=== PATIENT | female | born 1940 | race Caucasian/White ===

== ENCOUNTER → 2016-10-27 | Outpatient (CLI) | payer OTHER ==
[~2016-10-27] VITALS: Ht 167.6 cm; Wt 85.3 kg
[~2016-10-27] MED LIST: ALLEGRA60 MG PO; BUPROBAN150 MG PO; BUPROPION HCL150 M1 PO; CLONAZEPAM 1 MG1 M1 PO; CLONAZEPAM PO; COREG6.25 MG PO; CYCLOBENZAPRINE10 MG PO; CYMBALTA30 MG PO; CYMBALTA60 MG PO; ESTRACE0.5 MG PO; ESTRACE1 MG PO; FENTANYL PA12 MCG/HR TP; FENTANYL PA25 MCG/HR TP; FENTANYL PA25 MCG/HR TRANSDERM; FENTANYL PA50 MCG/HR TP; FENTANYL PA50 MCG/HR TRANSDERM; FENTANYL PATCH75 MCG TRANSDERM; FISH OIL 1,001000 M2 PO; FLEXERIL PO; HYDROCODON-ACE1 EAC5 PO; HYDROCODON-ACE1 EAC7 PO; HYDROCODON-ACE1 EAC8 PO; HYDROCODONE-AP1 EA11 PO; HYDROCODONE-AP1 EAC6 PO; IMITREX 25 MG T25 M1 PO; LEVOTHROID88 MCG PO; LEVOTHYROXIN0.125 M1 PO; LISINOPRIL10 MG PO; MIRALAX17 GM PO; NABUMETONE 500500 M1 PO; NABUMETONE 500500 M2 PO; NABUMETONE 750750 M1 PO; NAPROSYN500 MG PO; NEURONTIN 300300 M1 PO; NORCO 10-325 T1 EACH PO; PAMELOR25 MG PO; RELAFEN750 MG PO; SENNA8.6 M1 PO; SIMVASTATIN40 MG PO; SINGULAIR 10 MG10 M1 PO; TIZANIDINE HCL 22 M1 PO; UNICOMPLEX M TA1 TA1 PO; VENTOLIN HFA 1818 GM INH; VITAMIN D1000 UNI1 PO; VITAMIN D32000 UNI1 PO; ZANAFLEX4 M1 PO; [UNRECOGNIZED DRUG - OTHER] PO
--- NOTE | ~2016-10-27 | HPC ---
[address] [place] [address] PAIN MANAGEMENT CONSULTATION Name: RDA LINDER Room #: REG PADMINI Mo.#: [id number] Admission: 10/27/16 Attend Phys: Karson Clay DO Discharge: Date of : 42 Report #: [id number] THIS REPORT FOR: //name// CC: Karson TELLEZ DATE OF SERVICE: 10/27/2016 CHIEF COMPLAINT: Low back pain, right lower extremity pain and paresthesias. HISTORY OF PRESENT ILLNESS: As you know, the patient is a 76-year-old female who suffers from longstanding lumbar radiculopathy who ultimately underwent spinal cord stimulator implantation with good efficacy. She returns today in followup visit to begin weaning off fentanyl patches. She currently uses a 12 mcg patch along with hydrocodone on a p.r.n. basis. She has returned today in followup visit to make changes in her medication as she wishes to come off that fentanyl therapy as she is receiving about 70% improvement in overall pain with the spinal cord stimulating device. ALLERGIES: No known drug allergies. CURRENT MEDICATIONS: Fentanyl 12 mcg subQ 72 hours, hydrocodone/acetaminophen 5/325 one to two tabs every 6 hours p.r.n. for pain, bupropion SR 150 mg once a day, albuterol 2 puffs q. 4 hours, Senokot twice a day, nabumetone 500 mg twice a day, levothyroxine 125 mcg per day, cholecalciferol 2000 units per day, MiraLax 17 grams per day, multivitamin 1 tab per day, omega-3 fish oil 1 tab per day, lisinopril 20 mg per day, Duloxetine 60 mg per day, simvastatin 40 mg per day. SOCIAL HISTORY: The patient denies tobacco, alcohol, IV or illicit drug use. She is retired, accompanied by her . PHYSICAL EXAMINATION: VITAL SIGNS: Blood pressure 145/88, pulse 63, respiratory rate 16, unlabored. The patient is 100% on room air. Height 5 feet 6 inches tall, weight 180 pounds, BMI calculated 30.4. GENERAL: Well-developed, well-nourished, well-hydrated, exogenously obese 76-year-old female appearing stated age. She is placing pain score today at 1/10. HEENT: Normocephalic, atraumatic. Pupil's equal, round, reactive to light. EXTREMITIES: Show no clubbing, no cyanosis, no edema. MUSCULOSKELETAL: Seated straight leg raising negative. Supine straight leg rising negative. Jeff's test negative. Modified Gaenslen's positive for axial back pain. Ankle clonus negative[place] [address] PAIN MANAGEMENT CONSULTATION Name: LAUREN LINDERErna Krishnan Room #: REG PADMINI Blake#: [id number] Admission: 10/27/16 Attend Phys: Karson Clay DO Discharge: Date of : 42 Report #: [id number] ASSESSMENT: 1. Lumbar radiculopathy. 2. Lumbosacral spondylosis with radiculopathy. 3. Displacement of lumbar intervertebral disk with radiculopathy. 4. Degeneration of the lumbar spine. 5. Opioid dependency. 6. Chronic intractable pain. PLAN: 1. The patient has returned today in followup visit requesting alteration in medication therapy. She is requesting to come off the fentanyl patch as she is rarely using her hydrocodone therapies any longer. She indicates that she has been wearing a fentanyl patch for up to 6 days, which would indicate that this is providing no benefit from a pain standpoint. I highly recommend the patient come off the fentanyl at this time as she is noticing improvement of 70% with the spinal cord stimulator. 2. The patient will discontinue use of fentanyl. She was using a 12 mcg patch for baseline pain control. A 70% improvement in pain with the spinal cord stimulator has made it, so we can come off this medication. 3. The patient was provided prescriptions for hydrocodone 10/325 one tab p.o. q. 6 hours p.r.n. for pain. I have given the patient #120 tablets for a month worth of therapy. The patient was advised to take 1/2 tab to 1 tab p.r.n. for pain, no more than 4 per day. She was given prescriptions of this medication today for releases of today, 4 weeks from today, 8 weeks from today. 4. We will see the patient back in followup visit in 3 months for medication therapy and at that time we are hopeful we can continue to wean the patient off opioids as tolerated. <ELECTRONICALLY SIGNED> By: Karson Clay DO 11/01/16 0701 [id number] Karson Clay DO /nt
[2016-10-27 10:02] VITALS: BP 145/88
== END ==
LOC: PAIN 07:13
DX: M47.27 Other spondylosis with radiculopathy, lumbosacral region (principal); M51.16 Intervertebral disc disorders with radiculopathy, lumbar region; G89.29 Other chronic pain; I10 Essential (primary) hypertension

== ENCOUNTER → 2017-02-22 | Outpatient (CLI) | payer OTHER ==
[~2017-02-22] VITALS: Ht 165.1 cm; Wt 85.3 kg
[~2017-02-22] MED LIST changes: +HYDROCODONE-AP1 EACH PO
--- NOTE | ~2017-02-22 | HPC ---
[facility] [address] [place] [address] PAIN MANAGEMENT CONSULTATION Name: RAD LINDER Room #: REG [facility] Chepe.#: [id number] Admission: 02/22/17 Attend Phys: Karson Clay DO Discharge: Date of : 42 Report #: [id number] THIS REPORT FOR: //name// CC: Karson TELLEZ DATE OF SERVICE: 02/22/2017 CHIEF COMPLAINT: Low back pain and right lower extremity pain and paresthesias. HISTORY OF PRESENT ILLNESS: As you know, the patient is a 76-year-old female who returns today in followup visit with reported continued back pain, right lower extremity pain and paresthesias. She indicates pain is 3/10. She states pain is exacerbated with waking in the morning, improves with medications and spinal cord stimulator. She returns today in followup visit indicating that she is increasing her use of hydrocodone due to increasing pain issues. She wishes to discuss possible changes in medication therapy, also discuss other options. She denies injury or trauma that may have led to symptoms. She states her pain is nearly completely gone when she is active. It is only present when she is "sitting and thinking." She returns today to discuss options. ALLERGIES: No known drug allergies. CURRENT MEDICATIONS: Hydrocodone, cyclobenzaprine, bupropion SR, albuterol, Senokot, nabumetone, levothyroxine, cholecalciferol, MiraLax, multivitamin, omega 3 fish oil, lisinopril, Cymbalta, simvastatin. SOCIAL HISTORY: The patient denies tobacco, alcohol, IV or illicit drug use. She is retired. She has been retired for years. She is accompanied by her . IMAGING: No new imaging available. PHYSICAL EXAMINATION: VITAL SIGNS: Blood pressure 120/73, pulse 87, respiratory rate 16, unlabored. The patient is 96% on room air, height 5 feet 5 inches tall, weight 188 pounds, BMI calculated 31.3. GENERAL: Well-developed, well-nourished, well-hydrated exogenously obese 76-year-old female appearing stated age, placing pain score today 3/10. HEENT: Normocephalic, atraumatic. Pupils are equal, round, reactive to light. Extraocular muscles are intact. Speech is fluent. EXTREMITIES: Show no clubbing, no cyanosis, no edema. MUSCULOSKELETAL: Seated straight leg raising negative. Supine straight leg raising negative. Linda's test negative. Modified Gaenslen's positive for axial low back pain. Muscle bulk and tone equal and symmetrical in lower [address] [address] PAIN MANAGEMENT CONSULTATION Name: RAD LINDER Room #: REG [facility]#: [id number] Admission: 02/22/17 Attend Phys: Karson Clay DO Discharge: Date of : 42 Report #: [id number] extremities, intact to light touch from L1 through S2 dermatomes. ASSESSMENT: 1. Symptomatic lumbar radiculopathy. 2. Lumbosacral spondylosis with radiculopathy. 3. Displacement of lumbar intervertebral disk with radiculopathy. 4. Lumbar facet arthropathy. 5. Lumbar degeneration. 6. Chronic intractable pain. PLAN: 1. The patient returns today in followup visit indicating pain intensity increase, now reporting pain score 3/10. She states her pain does not appear to be covered by the spinal cord stimulator. I have advised the patient at this time to discontinue use of the spinal cord stimulator for the next 4 days. The patient should turn the device off immediately. She will then remain without the cord stimulator for the next 4 days. At that time, I believe she can truly ascertain what the effects of the spinal cord stimulator is providing. If the patient is noting no improvement in symptoms with the device, we could certainly have this explanted and move the patient onto next surgical option. The patient was advised to discontinue use of the spinal cord stimulator at this time. As of Tuesday, she can then determine if the effects of the device is actually providing good benefit. 2. The patient will continue on current dosing of nabumetone. She was given a prescription of 750 mg tablet, 1 tab p.o. b.i.d., #60, 2 refills. 3. The patient was provided a prescription of [place] 10/325. I have given her 2 tabs twice a day, #120, advised to take the medication only when pain is intolerable. She is able to reduce her reliance on this medication. We strongly suggest she do so. She was given releases of today, 4 weeks from today, 8 weeks from today, 3 months' worth of medication. 4. The patient and I did discuss at length the possibility of future surgical options. If the patient is not noting analgesic benefit with medications and the spinal cord stimulator is truly not providing much in the way of benefit, we will be sending the patient for CT of the lumbar spine and surgical consultation. I believe she is exhausted virtually every option we have from a pain management standpoint except for continuing physical activity, which we have suggested at each visit. We once again suggest this to the patient. 5. We will see the patient back in followup visit 3 months, she can contact our clinic if she wants referrals for surgical options assuming that her spinal cord stimulator is not providing analgesic benefit we expect. By: [id number] Karson Clay DO /nt
[2017-02-22 11:17] VITALS: BP 120/73
== END | disposition home or self-care (01) ==
LOC: PAIN 07:43
DX: M54.16 Radiculopathy, lumbar region (principal); M47.817 Spondylosis without myelopathy or radiculopathy, lumbosacral region; M51.26 Other intervertebral disc displacement, lumbar region; M51.36 Other intervertebral disc degeneration, lumbar region; G89.29 Other chronic pain

== ENCOUNTER → 2017-06-01 | Outpatient (CLI) | payer OTHER ==
[~2017-06-01] VITALS: Ht 167.6 cm; Wt 85.0 kg
--- NOTE | ~2017-06-01 | HPC ---
[facility] [address] [place] [address] PAIN MANAGEMENT CONSULTATION Name: RAD LINDER Room #: REG [facility]..#: [id number] Admission: 06/01/17 Attend Phys: Karson Clay DO Discharge: Date of : 42 Report #: [id number] THIS REPORT FOR: //name// CC: Karson TELLEZ DATE OF SERVICE: 06/01/2017 DATE OF SERVICE: 06/01/2017. REFERRING PHYSICIAN: Dr. Jaylon Parish. CHIEF COMPLAINT: Low back pain, right lower extremity pain and paresthesias, chronic intermittent neck pain. HISTORY OF PRESENT ILLNESS: As you know, the patient is a 76-year-old female who returns today in followup visit with continued low back pain, right lower extremity pain and paresthesias. We have attempted every option available for us to control pain including physical therapy, stretching exercises, core strengthening, medication management, epidural injections, which provided good improvement, but only transiently. She has ultimately undergone a spinal cord stimulator implantation for which she is receiving some benefit. She returns today despite all these interventions, reporting pain score of 3-4/10, states her pain is chronic in nature, describes the pain as dull, aching and periodically electrical, it is worse in the morning, improves with medications, heat and cold compresses, spinal cord stimulator. She returns today in followup visit for refill of medications. She is denying any changes in her medical history. ALLERGIES: AMOXICILLIN. CURRENT MEDICATIONS: Hydrocodone 1 tab p.o. b.i.d., nabumetone 750 mg p.o. b.i.d., cyclobenzaprine 10 mg 3 times a day p.r.n., bupropion 150 mg once a day, albuterol 2 puffs q. 4 hours, Senokot-S 2 tabs p.o. at bedtime, levothyroxine 125 mcg per day, cholecalciferol 2000 units per day, MiraLax 17 grams per day, multivitamin 1 tab per day, omega-3 fish oil 1 tab per day, lisinopril 10 mg per day, duloxetine 60 mg 1-1/2 tabs p.o. at bedtime, simvastatin 40 mg per day. SOCIAL HISTORY: The patient denies tobacco, alcohol, IV or illicit drug use. She is retired. retired years ago, accompanied by her and present in the other room. IMAGING: [place] [address] PAIN MANAGEMENT CONSULTATION Name: RAD LINDER Room #: [facility] [id number] Admission: 06/01/17 Attend Phys: Karson Clay DO Discharge: Date of : 42 Report #: [id number] PHYSICAL EXAMINATION: VITAL SIGNS: Blood pressure 154/92, pulse 94, respiratory rate 16, unlabored, the patient 94% on room air. Height 5 feet 6 inches tall, weight 187 pounds, BMI calculated 30.3. GENERAL: Well developed, well nourished, well-hydrated exogenously obese 76-year-old female appearing her stated age. She is placing pain score today 3-4/10. HEENT: Normocephalic, atraumatic. Pupils are equal, round, reactive to light. Extraocular muscles are intact. EXTREMITIES: Show no clubbing, no cyanosis, no edema. MUSCULOSKELETAL: Seated straight leg raising negative. Supine straight leg raising negative. Jeff's test negative. Modified Gaenslen's positive for axial low back pain. Ankle clonus negative. Babinski is negative. Remains intact to light touch from L1 through S2 dermatomes. Deep tendon reflexes are symmetrical at patella and Achilles. Ankle clonus negative. Babinski is negative. ASSESSMENT: 1. Symptomatic lumbar radiculopathy. 2. Displacement of lumbar intervertebral disk with radiculopathy. 3. Lumbosacral spondylosis with radiculopathy. 4. Facet arthropathy of the lower lumbar spine. 5. Lumbar degeneration. 6. Chronic intractable pain. PLAN: 1. The patient returns today in followup visit indicating pain at a level of 3-4/10, indicates pain is radiating down the buttock, posterolateral thigh to the calves. She indicates pain is exacerbated with arising in the morning and doing certain activities. Overall, the patient states medications are working fairly well. This in conjunction with spinal cord stimulator provides her pain level of no greater than 3-4/10, which according to the patient is tolerable. She is denying any side effects to medication, wishes to continue the current therapy. 2. The patient was provided a prescription of nabumetone 750 mg dose 1 tab p.o. b.i.d. I have given the patient #60 tablets, 2 refills. The patient denies any dyspepsia, worsening blood pressure, lower extremity edema with this medication. She will continue the medication for anti-inflammatory activity. 3. The patient was provided a refill prescription of [place] 10/325 2 tabs p.o. b.i.d. I have given the patient #120, releases of today, 4 weeks from today, 8 weeks from today, 3 months' worth of medication. 4. The patient will return to our clinic in 3 months to discuss medication [address] [address] PAIN MANAGEMENT CONSULTATION Name: RAD LINDER Room #: [facility] PADMINI Blake#: [id number] Admission: 06/01/17 Attend Phys: Karson Clay DO Discharge: Date of : 42 Report #: [id number] management and alternative treatments. If her pain does intensify she can return for adjustments in her spinal cord stimulator. By: [id number] Karson Clay DO /nt
[2017-06-01 09:15] VITALS: BP 154/92
== END ==
LOC: PAIN 07:02
DX: M51.16 Intervertebral disc disorders with radiculopathy, lumbar region (principal); M47.27 Other spondylosis with radiculopathy, lumbosacral region; M54.2 Cervicalgia; M79.604 Pain in right leg; R20.9 Unspecified disturbances of skin sensation

== ENCOUNTER → 2017-08-09 | Outpatient (CLI) | payer OTHER ==
[~2017-08-09] VITALS: Ht 167.6 cm; Wt 84.7 kg
--- NOTE | ~2017-08-09 | HPC ---
[facility] [place] [address] PAIN MANAGEMENT CONSULTATION Name: RAD LINDER [facility] [id number] Admission: 08/09/17 Attend Phys: Karson Clay DO Discharge: Date of : 42 Report #: [id number] THIS REPORT FOR: //name// CC: Karson TELLEZ DATE OF SERVICE: 08/09/2017 DATE OF SERVICE: 08/09/2017 CHIEF COMPLAINT: Low back pain, lower extremity pain with paresthesias. HISTORY OF PRESENT ILLNESS: As you know, the patient is a 77-year-old female who returns today in followup visit with continued low back pain, right lower extremity pain and paresthesias. The patient returns today in followup visit requesting increasing medications. She recently went to a trip to [facility] where she was experiencing little or no pain during the entire trip returning to the [facility] before her pain began to intensify. She notes that her pain was controlled when she was distracted and was doing activities, but is now uncontrolled and returning, requesting refill on therapy. She states she is taking more hydrocodone than she should and has run out of the medication almost 3 weeks, early. She returns to discuss options for treatment. She is placing pain score 4/10. ALLERGIES: AMOXICILLIN. CURRENT MEDICATIONS: Hydrocodone/acetaminophen 10/325 2 tabs p.o. b.i.d., nabumetone 750 mg twice day, cyclobenzaprine 10 mg twice a day, bupropion SR 150 mg per day, albuterol 2 puffs q. 4 hours, Senokot 2 tabs p.o. at bedtime, levothyroxine 125 mcg per day, cholecalciferol 2000 units per day, MiraLax 17 grams per day, omega-3 fish oil 1 tab per day, lisinopril 10 mg per day, duloxetine 60 mg p.o. at bedtime, simvastatin 40 mg per day. SOCIAL HISTORY: The patient denies tobacco, alcohol, IV or illicit drug use. She is retired. She is accompanied by her who is present in room. IMAGING: No new imaging available. PHYSICAL EXAMINATION: VITAL SIGNS: Blood pressure 136/78, pulse 88, respiratory rate 20, unlabored. The patient is 96% on room air, height 5 feet 6 inches tall, weight 186.8 pounds, BMI calculated 30.2. GENERAL: Well developed, well nourished, well-hydrated, exogenously obese 77-year-old female appearing her stated age. She is placing pain score today 01/31. [place] [address] PAIN MANAGEMENT CONSULTATION Name: RAD LINDER Room #: REG [facility]#: [id number] Admission: 08/09/17 Attend Phys: Karson Clay DO Discharge: Date of : 42 Report #: [id number] HEENT: Normocephalic, atraumatic. Pupils equal, round, reactive to light. EXTREMITIES: Show no clubbing, no cyanosis, no edema. MUSCULOSKELETAL: Seated straight leg raising negative. Supine straight leg raising negative. NOAH test negative. Modified Gaenslen's positive only for some axial low back pain. Gait normal, stance normal. ASSESSMENT: 1. Lumbar radiculopathy. 2. Displacement of lumbar intervertebral disk with radicular symptoms. 3. Lumbosacral spondylosis with radiculopathy. 4. Facet arthropathy of the lumbar spine. 5. Lumbar degeneration. 6. Opioid dependency. 7. Chronic intractable pain. PLAN: 1. The patient returns today in followup visit indicating increasing pain since she has returned from her trip to [facility]. During the trip to [facility] where she was on [employer] riding on [employer] and hiking and climbing, she has reported no pain. In fact, she reports she did not use hardly any pain medication during the trip. Returning, she then began to take more than she has been prescribed. She was taking two 10 mg hydrocodone twice a day, now attempting to move to 3 or 4 dosing of 2 tabs per day and has run out of medication. I have had a long discussion with the patient today about pain generation and pain perception. I do believe the patient returns to her normal typical activities and begins to experience increasing pain as she is concentrating on this and not distracting herself with other activities. It has been shown by this patient's own recollection of the trip that with distraction her pain is nearly gone. This was noted with the reports of her and her being on safari, bouncing in the vehicles, walking and hiking, and her pain was negligible. Now she returns to a sedentary lifestyle in the [facility] and her pain intensifies. This is a difficult process for people to understand, but I believe her symptoms are related more to a suffering type of situation than a true nociceptive pain. The suffering the patient is experiencing will not be treated well with hydrocodone. I have advised the patient at this time, we are unwilling to increase the opioid medication. I have had this patient on high dose, low dose, and everywhere in between dosing and, despite the changes, her pain remains about the same. I believe she has become quite habituated to hydrocodone and this is quite concerning. We have gone as far with this patient as we possibly can from a treatment standpoint. We have even gone as far as placing spinal cord stimulator per the request of the Neurosurgery team. Despite all these efforts, the patient continues to experience pain that is uncontrolled. I believe ultimately the patient will need to come off of opioid therapy as I do not feel that they are beneficial, at this point in time, I am unwilling to make any further changes. I am very concerned about this patient's use of medication as I believe is more for an existential suffering than it is [facility] [address] [place] [address] PAIN MANAGEMENT CONSULTATION Name: RAD LINDER Room #: REG [facility].#: [id number] Admission: 08/09/17 Attend Phys: Karson Clay DO Discharge: Date of : 42 Report #: [id number] for true nociceptive pain. This has been proven by the fact the patient is easily distracted and had an entire trip where she was quite active, doing activities that should have exacerbated back pain issues and yet did not, indicating that her pain is more a perception than it is true nociceptive. I have discussed this with the patient today and advised the patient we would not be providing any changes in therapy as I do not feel that they are necessary. 2. The patient was provided a prescription of [place] 1 tab to 2 tabs p.o. b.i.d. I have given the patient releases of 2 weeks and 6 weeks. This will provide the patient with 2 months' worth of medication. She is not due for a refill of this medication for at least 2 months. If the patient has overtaken her medication, this is a problem that she will have to deal with on her own as she was not advised to increase her medication nor did she contact our clinic to advise us of such and this is part of our opioid contract with the patient. 3. The patient was provided a prescription of nabumetone 750 mg dose 1 tab p.o. b.i.d., given the patient #60, two refills. 4. We will see the patient back in followup visit in 2-1/2 months. At that time, we will discuss significant changes in the therapy. I am very concerned about this patient in opioid management. I believe she is using these medications for symptoms that are not truly nociceptive. I believe there is a significant component of existential suffering and this needs to be addressed more fully. I am going to consider having the patient seek surgical consultation as I do not feel that she can continue with the therapy we are providing without more complications. By: [id number] Karson Clay DO /nt
[2017-08-09 10:03] VITALS: BP 136/78
== END ==
LOC: PAIN 06:29
DX: M54.16 Radiculopathy, lumbar region (principal); M51.26 Other intervertebral disc displacement, lumbar region; M47.897 Other spondylosis, lumbosacral region; M12.88 Other specific arthropathies, not elsewhere classified, other specified site; M51.36 Other intervertebral disc degeneration, lumbar region

== ENCOUNTER → 2017-10-12 | Outpatient (CLI) | payer OTHER ==
[~2017-10-12] VITALS: Ht 167.6 cm; Wt 85.5 kg
[~2017-10-12] MED LIST changes: +ZANAFLEX4 MG PO
--- NOTE | ~2017-10-12 | HPC ---
[facility] [place] [address] PAIN MANAGEMENT CONSULTATION Name: RAD LINDER Room #: REG [facility]..#: [id number] Admission: 10/12/17 Attend Phys: Karson Clay DO Discharge: Date of : 42 Report #: [id number] THIS REPORT FOR: //name// CC: Karson TELLEZ DATE OF SERVICE: 10/12/2017 REFERRING PHYSICIAN: Jaylon Parish MD CHIEF COMPLAINT: Low back pain, bilateral lower extremity pain and paresthesias, right greater than left. HISTORY OF PRESENT ILLNESS: As you know, the patient is a 77-year-old female who returns today in followup visit for medication management. She states that she is taking more of hydrocodone than is actually prescribed. She is taking five 10/325 hydrocodone per day instead of 4 and she has run low of her medications. She returns stating her pain has intensified now at a level 4/10. She indicates the pain is dull, aching in sensation, and worse in the morning hours, improves with medications and spinal cord stimulator. She returns to make minor adjustments in her medications in hopes of improving pain further. She denies injury, trauma or any changes in her medical history since our last visit. ALLERGIES: AMOXICILLIN. CURRENT MEDICATIONS: Hydrocodone/acetaminophen 10/325 one tab every 6 hours p.r.n. for pain, nabumetone 750 mg twice a day, cyclobenzaprine 10 mg twice a day, bupropion SR 150 mg once a day, albuterol 2 puffs q.4 hours, Senokot-S 2 tabs at bedtime, levothyroxine 125 mcg per day, cholecalciferol 2000 units per day, MiraLax 17 grams per day, omega-3 fish oil 1 tab per day, lisinopril 10 mg per day, duloxetine 120 mg once a day, and simvastatin 40 mg per day. SOCIAL HISTORY: The patient denies tobacco, alcohol, IV or illicit drug use. She is retired. She is unaccompanied today. IMAGING: No new imaging available. PHYSICAL EXAMINATION: VITAL SIGNS: Blood pressure 153/86, pulse 86, respiratory rate 20 and unlabored, the patient is 96% on room air, height 5 feet 6 inches tall, weight 188.4 pounds, and BMI calculated 30.4. GENERAL: Well-developed, well-nourished, well-hydrated, exogenously obese 77-year-old female, appearing her stated age, placing pain score today 4/10. HEENT: Normocephalic, atraumatic. Pupils are equal, round, [place] [address] PAIN MANAGEMENT CONSULTATION Name: RAD LINDER Room #: REG [facility] Blake#: [id number] Admission: 10/12/17 Attend Phys: Karson Clay DO Discharge: Date of : 42 Report #: [id number] Extraocular muscles are intact. NEUROLOGIC: Speech remains fluent. EXTREMITIES: Show no clubbing, no cyanosis, and no edema. MUSCULOSKELETAL: Lower extremity strength is equal and symmetrical 5/5, muscle bulk and tone equal and symmetrical in lower extremities. Seated straight leg raising negative. Supine straight leg raising negative. Jeff's test negative. Modified Gaenslen's positive for axial back pain. There are well-healed surgical scars from the spinal cord stimulator noted. ASSESSMENT: 1. Symptomatic lumbar radiculopathy. 2. 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 3. Lumbosacral spondylosis with radiculopathy. 4. Facet arthropathy of the lumbar spine. 5. Lumbar degeneration. 6. Opioid dependency. 7. Chronic intractable pain. PLAN: 1. The patient returns today in followup visit indicating that she has had to increase her use of hydrocodone over the past couple of months, she is now taking 5 tablets per day. We have had a long discussion with the patient about appropriate use of medications. She still remains well under the CDC's recommended guidelines for opioid use, but has increased from 40 mg to 50 mg. I cautioned the patient on increasing further. Recommend that she remain at the lowest most effective dose of this medication to reduce the potential loss of efficacy, but also to reduce the side effects. The patient states understood and we will adjust medications appropriately. 2. The patient was provided a prescription of hydrocodone 10/325 one tab every 5 hours p.r.n. for pain, I have given the patient #150, release dates of today, 4 weeks from today, 8 weeks from today, 3 months' worth of medication. 3. We will see the patient back in followup visit 3 months from today where we will discuss efficacy of medications and any changes that may be necessary. By: [id number] Karson Clay DO /nt
[2017-10-12 10:19] VITALS: BP 153/86
== END ==
LOC: PAIN 06:55
DX: M51.16 Intervertebral disc disorders with radiculopathy, lumbar region (principal); M47.27 Other spondylosis with radiculopathy, lumbosacral region; M46.86 Other specified inflammatory spondylopathies, lumbar region; G89.29 Other chronic pain; M47.896 Other spondylosis, lumbar region; R20.2 Paresthesia of skin; F11.20 Opioid dependence, uncomplicated

== ENCOUNTER → 2017-12-20 | Outpatient (CLI) | payer OTHER ==
[~2017-12-20] VITALS: Ht 167.6 cm; Wt 85.5 kg
[~2017-12-20] MED LIST changes: +PERCOCET 10-321 EAC1 PO; +PERCOCET 10-321 EACH PO; +ZESTORETIC 20-1 EAC2 PO
--- NOTE | ~2017-12-20 | HPC ---
[facility] [place] [address] PAIN MANAGEMENT CONSULTATION Name: RAD LINDER Room #: REG [facility] MKole.#: [id number] Admission: 12/20/17 Attend Phys: Karson Clay DO Discharge: Date of : 42 Report #: [id number] THIS REPORT FOR: //name// CC: Karson TELLEZ DATE OF SERVICE: 12/20/2017 CHIEF COMPLAINT: Low back pain, bilateral lower extremity pain, right greater than left. HISTORY OF PRESENT ILLNESS: As you know, the patient is a 77-year-old female with longstanding history of low back pain, bilateral lower extremity pain, right greater than left. The patient continues to take opioid medication for pain control. She indicates the opioids are working well for pain control, placing current pain score 1-2/10 and reports up to 80-90% improvement in overall symptoms with the medications. She did have a spinal cord stimulator which did provide her excellent benefit until all of a sudden it discontinued working. We have adjusted this device multiple times, no improvement. She returns today for medication management. ALLERGIES: AMOXICILLIN. CURRENT MEDICATIONS: Hydrocodone/acetaminophen 10/325 one tab every 6 hours p.r.n. for pain, nabumetone 750 mg twice a day, cyclobenzaprine 10 mg twice a day, bupropion SR 150 mg per day, albuterol 2 puffs q.4 hours, Senokot-S 2 tabs p.o. at bedtime, levothyroxine 125 mcg per day, cholecalciferol 2000 units per day, MiraLax 17 grams per day, omega-3 fish oil 1 tab per day, lisinopril 10 mg per day, duloxetine 120 mg per day, simvastatin 40 mg per day. SOCIAL HISTORY: The patient denies tobacco, alcohol, IV or illicit drug use. She is retired, retired years ago, accompanied by her present in room today. IMAGING: No new imaging available. PQRS: The patient has no history of rheumatoid or osteoarthritis. She indicates pain intensity 1-2/10. She is not a fall risk, not had a fall in the last 3 months. She is not on blood thinners. She does have diagnosis of hypertension, treated medically. She is on opioid therapy greater than 6 weeks. She is at low risk for opioid dependency. Functional assessment 45/70 indicating moderate to severe interference of daily activities secondary to pain. PHYSICAL EXAMINATION: [facility] [address] [address] PAIN MANAGEMENT CONSULTATION Name: RAD LINDER Room #: REG [facility]#: [id number] Admission: 12/20/17 Attend Phys: Karson Clay DO Discharge: Date of : 42 Report #: [id number] VITAL SIGNS: Blood pressure 144/91, pulse 84, respiratory rate 16, unlabored. The patient is 97% on room air. Height 5 feet 6 inches tall, weight 188.4 pounds, BMI calculated 30.4. GENERAL: Well-developed, well-nourished, well-hydrated 76-year-old female appearing her stated age, placing current pain score 1-2/10. HEENT: Normocephalic, atraumatic. Pupils equal, round, reactive to light. EXTREMITIES: Show no clubbing, no cyanosis, no edema. MUSCULOSKELETAL: Lower extremity strength is equal and symmetrical. Muscle bulk and tone equal and symmetrical in lower extremities. Seated straight leg raising negative. Supine straight leg raising negative. Linda's test negative. Modified Gaenslen's positive for axial low back pain. Ankle clonus negative. Babinski is negative. ASSESSMENT: 1. Symptomatic lumbar radiculopathy. 2. Displacement of lumbar intervertebral disk with radiculopathy. 3. Lumbosacral spondylosis with radiculopathy. 4. Facet arthropathy of the lower lumbar spine. 5. Lumbar degeneration. 6. Opioid dependency. 7. Chronic intractable pain. PLAN: 1. The patient returns today in followup visit requesting to continue medication therapy. The patient feels medications working beneficially for pain control. The patient is placing pain score of 1-2/10. She has requested refills of the medication be provided for the next 3 months. She remains well below the CDCS recommended guidelines of no greater than 90 morphine equivalents a day and wishes to continue the therapy at current dosing as she is seeing efficacy of upwards of 80% improvement. 2. The patient was provided a prescription of [place] 10/325 one tab every 4 hours p.r.n. for pain. I have given the patient #150, releases of today, 4 weeks from today, 8 weeks from today. She was advised to take the medication as directed, not to take the medication prophylactically. 2. The patient was provided a prescription of Relafen 750 mg dose 1 tab p.o. b.i.d., #60, 2 refills, 3 months' worth of medication. 3. We will see the patient back in followup visit in 3 months for medication therapy earlier to discuss potential surgical options. <ELECTRONICALLY SIGNED> By: Karson Clay DO 01/10/18 0856 [id number] Karson Clay, DO /nt
[2017-12-20 11:20] VITALS: BP 144/91
== END ==
LOC: PAIN 07:06
DX: M54.16 Radiculopathy, lumbar region (principal); M47.897 Other spondylosis, lumbosacral region; F11.10 Opioid abuse, uncomplicated; G89.29 Other chronic pain; Z88.1 Allergy status to other antibiotic agents

== ENCOUNTER → 2018-06-13 | Outpatient (CLI) | payer OTHER ==
[~2018-06-13] VITALS: Ht 162.6 cm; Wt 82.1 kg
--- NOTE | ~2018-06-13 | HPC ---
[facility] [place] [address] PAIN MANAGEMENT CONSULTATION Name: RAD LINDER Room #: REG [facility].#: [id number] Admission: 06/13/18 Attend Phys: Karson Clay DO Discharge: Date of : 42 Report #: [id number] THIS REPORT FOR: //name// CC: Karson Parish MD Physician staff ALESSANDRA GEOFF DATE OF SERVICE: 06/13/2018 REFERRING PHYSICIAN: Jaylon Parish M.D. CHIEF COMPLAINT: Low back pain, bilateral lower extremity pain and paresthesias, right greater than left. HISTORY OF PRESENT ILLNESS: As you know, the patient is a 77-year-old female with longstanding history of low back pain, lower extremity pain with paresthesias. She returns today in followup visit indicating her pain has intensified. She is now indicating she is having to take more hydrocodone than is originally prescribed. She wishes to make changes in medication management at this time. She returns to discuss this as an option. She indicates no new injury and no new trauma or any changes in her medical history since our last visit. ALLERGIES: AMOXICILLIN. CURRENT MEDICATIONS: Lisinopril, hydrochlorothiazide, nabumetone, hydrocodone, tizanidine, cyclobenzaprine, bupropion SR, albuterol, Senokot-S, levothyroxine, cholecalciferol, MiraLax, multivitamins, duloxetine and simvastatin. SOCIAL HISTORY: The patient denies tobacco, alcohol and IV or illicit drug use. She is retired, retired years ago. She is accompanied by her who is present in room today. IMAGING DATA: No new imaging available. PQRS: The patient has some mild arthritic changes in the lumbar spine, no rheumatoid arthritis. She indicates pain level of around 2-3/10. She is not a fall risk, has not had a fall in the last 3 months. She is not on blood thinners. She is treated for hypertension. She has been on opioids for an extended period of time. She is a low risk for opioid dependency. She is placing pain impact score again today at 17/70, mild. PHYSICAL EXAMINATION: VITAL SIGNS: Blood pressure 137/69, pulse 95 and respiratory rate 16 and unlabored. The patient is 97% on room air. Height 5 feet 4 inches tall, weight [facility] [address] [place] [address] PAIN MANAGEMENT CONSULTATION Name: RAD LINDER Room #: REG [facility]#: [id number] Admission: 06/13/18 Attend Phys: Karson Clay DO Discharge: Date of : 42 Report #: [id number] 181 pounds and BMI calculated 31.1. GENERAL: Well-developed, well-nourished and well-hydrated 77-year-old female. She is appearing stated age, placing current pain score around 2-3/10. HEENT: Normocephalic and atraumatic. Pupils equal, round and reactive to light. Extraocular muscles are intact. EXTREMITIES: Show no clubbing, no cyanosis and no edema. MUSCULOSKELETAL: Lower extremity strength is symmetrical 5/5, intact to light touch from L1 through S2 dermatomes. Seated straight leg raising negative. Supine straight leg raising positive. Jeff's test negative. Modified Gaenslen's positive for axial low back pain. Gait appears normal. Muscle bulk and tone symmetrical in lower extremities. ASSESSMENT: 1. Lumbar radiculopathy. 2. Displacement of lumbar intervertebral disk with radiculopathy. 3. Lumbosacral spondylosis with radiculopathy. 4. Facet arthropathy of the lumbar spine. 5. Chronic lumbar degeneration. 6. Opioid dependency. 7. Chronic intractable pain. PLAN: 1. The patient has returned today in followup visit where we have discussed at length the use of opioid medications. She states she is getting benefit with opioids but is noticing that the hydrocodone 10/325, do not provide prolonged benefit. She wishes to make changes in the medication today. We have discussed with the patient the new CDC regulations and how opioids are being perceived by not only her government but also physicians in general. She wishes to make a change but understands that this is not a permanent change as these will not be present for a prolonged timeframes. We will make the following adjustments in medication today. 2. The patient will submit to urine drug screen per our opioid contract. The findings of this drug screen will be available to the patient in the future. 3. We will make a change from [place] 10/325 to Percocet 10/325, this is 1-1/2 times more potent than the [place] and I have advised the patient not to take more than one tablet at a time. She is to utilize this medication as directed. She is not to take more than 4 tablets in any given day. She was given #120 tablets, releases of today, 4 weeks from today, 8 weeks from today, 3 months' worth of medication. 4. We have taken the liberty of running the patient threw K-TRACS and MO-TRACS. There is no concerning entries in the tracking system. [facility] [address] [place] [address] PAIN MANAGEMENT CONSULTATION Name: RAD LINDER Room #: REG [facility]abeth#: [id number] Admission: 06/13/18 Attend Phys: Karson Clay DO Discharge: Date of : 42 Report #: [id number] 5. We will see the patient back in followup visit in 3 months for medication therapy if they are working beneficially. <ELECTRONICALLY SIGNED> By: Karson Clay DO 06/15/18 0817 1226 0018 Karson Clay DO /nt
[2018-06-13 10:13] VITALS: BP 137/69
== END ==
LOC: PAIN 06:58
DX: M47.27 Other spondylosis with radiculopathy, lumbosacral region (principal); M51.16 Intervertebral disc disorders with radiculopathy, lumbar region; M12.88 Other specific arthropathies, not elsewhere classified, other specified site; G89.4 Chronic pain syndrome; F11.20 Opioid dependence, uncomplicated

== ENCOUNTER → 2018-09-12 | Outpatient (CLI) | payer OTHER ==
[~2018-09-12] VITALS: Ht 162.6 cm; Wt 84.2 kg
--- NOTE | ~2018-09-12 | HPC ---
[facility] [address] [place] [address] PAIN MANAGEMENT CONSULTATION Name: RAD LINDER [id number] Admission: 09/12/18 Attend Phys: Karson Clay DO Discharge: Date of : 42 Report #: [id number] THIS REPORT FOR: //name// CC: Karson HERRING MD Physician staff ALESSANDRA Damon DATE OF SERVICE: 09/12/2018 CHIEF COMPLAINT: Low back pain, bilateral lower extremity pain and paresthesias, right is greater than the left. HISTORY OF PRESENT ILLNESS: As you know, this is a 78-year-old pleasant female with a longstanding history of low back pain. She returns today for a followup visit for her medication refill. She tells me that her pain score is 2/10 today in her low back and buttocks, worse first thing in the morning. Her medication and her spinal cord stimulator do help, though she does not use her spinal cord stimulator on a daily basis. The patient denies any constipation. She does use MiraLax and Senokot and does not have any daytime sleepiness. She would like a refill of her oxycodone 10/325. She had an opioid rotation at last visit and thinks that the oxycodone is working much better than the hydrocodone in helping her pain. ALLERGIES: AMOXICILLIN. CURRENT MEDICATIONS: Nabumetone 7.5, oxycodone 10/325, lisinopril/hydrochlorothiazide 20/25 daily, Flexeril 10 mg twice a day, bupropion 150 daily, senna, thyroid medicine 0.125 mg daily, vitamin D3, MiraLax daily, multivitamin daily, fish oil daily, Cymbalta 120 mg at bedtime and Zocor 40 mg at bedtime. PQRS: 1. The patient has a history of osteoarthritis in her lumbar spine that is mild and no rheumatoid arthritis. Height is 5 feet 4 inches, weight 185, BMI is 31.8. Vital signs: Blood pressure 116/70, pulse is 91, respirations 18, oxygen sat is 97%. Pain score is 2/10. Fall risk: She denies dizziness. Does not need help walking or standing and she has not fallen in the last 3 months. She is not on any blood thinners, but does take hypertension medicines. Her opioid therapy is greater than 6 weeks, so therefore an opioid contract is on the chart. She is a low risk assessment and her functional assessment is 17/70. She has never used recreational drugs. She does not smoke and occasionally drinks alcohol. We checked the [place] prescription [place] [address] PAIN MANAGEMENT CONSULTATION Name: RAD LINDER Room #: REG [facility] Blake#: [id number] Admission: 09/12/18 Attend Phys: Karson Clay DO Discharge: Date of : 42 Report #: [id number] is filling appropriate from Dr. Karson Clay appropriate times. The patient tells me that she safeguards her medicines and there is a drug screen on her chart. PHYSICAL EXAMINATION: GENERAL: This is a well-developed, well-hydrated 78-year-old female. She appears her stated age, placing her current pain score around 2 today. HEENT: Normocephalic, atraumatic. Extraocular eye muscles are intact. NECK: No JVD or adenopathy. MUSCULOSKELETAL: Lower extremity strength judged to be 5/5. Straight leg raising is negative. She is able to rise from sitting to standing without difficulty in the room. ASSESSMENT: 1. Lumbar radiculopathy. 2. Displacement of lumbar intravertebral disk with radiculopathy. 3. Lumbosacral spondylosis with radiculopathy. 4. Facet arthropathy of the lumbar spine. 5. Chronic lumbar degeneration. 6. Opioid dependency. 7. Chronic intractable pain. PLAN: 1. The patient has returned today for followup of her opioid medication. The patient tells me that she has noticed a great deal of benefit from her opiate rotation in her last appointment from hydrocodone to oxycodone. The patient would like to continue her oxycodone. She has been taking up to 4 tablets of 10/325 a day. 2. We discussed the CDC guidelines of 90 mEq or less, preferably 50 mEq of morphine. I showed her the conversion tables and the patient falls into the 50-90 mEq of morphine range based on the conversion. I informed the patient that since we will be continuing the oxycodone, therefore she would need to be seen at 2-month intervals per the standard set by the physicians in the office. The patient is agreeable with this and understands. 3. Script was given for Percocet 10/325 one p.o. q.i.d., #120, with release today and again in 4 weeks. The patient tells me she does not need nabumetone prescriptions today, she has another refill enough to get her to her next appointment in 2 months. 4. The patient will be seen in [address] Karson Clay. The patient was seen today in collaboration with Dr. Karson Clay. <ELECTRONICALLY SIGNED> By: Keira Shelton 09/12/18 1511 1031 1144 Keira ramirez
[2018-09-12 09:08] VITALS: BP 116/70
== END ==
LOC: PAIN 07:58
DX: M79.604 Pain in right leg (principal); M79.605 Pain in left leg; M54.5 Low back pain; R20.2 Paresthesia of skin; M47.26 Other spondylosis with radiculopathy, lumbar region; G89.4 Chronic pain syndrome; F11.20 Opioid dependence, uncomplicated; M51.37 Other intervertebral disc degeneration, lumbosacral region

== ENCOUNTER → 2018-11-08 | Outpatient (CLI) | payer OTHER ==
[~2018-11-08] VITALS: Ht 162.6 cm; Wt 85.5 kg
[2018-11-08 10:23] VITALS: BP 115/65
--- NOTE | 2018-11-08 10:37 | NUR ---
Pain Clinic Assessment: 1. History of Osteoarthritis: NO History of Rheumatoid Arthritis: NO 2. Height: 5 ft. 4 in. 162.6 cm. Weight: 188.4 lb. oz. 85.458 kg. Patient's BMI: 32.3 3. Vital Signs: BP: 115/65 Pulse: 95 Resp: 20 Temp: 02 Sat: 98 ECG Mon: 4. Pain Intensity: 5 5. Fall Risk: Dizziness: N Needs help standing or walking: N Fallen in the last 3 months: N Fall risk comments: 6. Patient on Blood Thinner: None 7. History of Hypertension: Y 8. Opioid Therapy greater than 6 weeks: Y Opiate Contract Signed: 05/04/16 9. Risk Assessment Tool Provided: 1-LOW RISK 10. Functional Assessment Tool: 11. Recreational Drug Use: Never Drug Type: Tobacco Use: Never Smoker Tobacco Type: Amount or Packs/day: How Many Years: Alcohol Use: Yes Frequency: Quant:
--- NOTE | 2018-11-09 08:11 | HPC ---
[facility] [address] [place] [address] PAIN MANAGEMENT CONSULTATION Name: RAD LINDER [id number] Admission: 11/08/18 Attend Phys: Keira Shelton Discharge: Date of : 44 Report #: [id number] THIS REPORT FOR: //name// CC: Keira Shelton Physician staff ALESSANDRA TELLEZ DATE OF SERVICE: 11/08/2018 CHIEF COMPLAINT: Low back pain, bilateral lower extremity pain and paresthesias. HISTORY OF PRESENT ILLNESS: This is a very pleasant 78-year-old female with long-standing history of low back pain. She returns for a followup visit today for her medication refill. She tells me that her pain score is 5/10 today, that she had recently taken her medicine and she decreased it to almost zero when the medicines are working. She tells me she is not using her spinal cord stimulator at all currently, does go for periods without using it and then turns it back on again. She does complain like of a dull pain in her low back and bilateral buttocks. She tells me that her constipation is controlled with taking MiraLax. She also talks today about her upcoming trip that she is going to go to [place] and [place] in February and looking forward to that cruise that she is going on. ALLERGIES: AMOXICILLIN. MEDICATIONS: Current list of medications, nabumetone 750 twice a day, oxycodone 10/325 four tablets a day, lisinopril/hydrochlorothiazide daily, Flexeril 10 mg twice a day, bupropion 150 mg daily, albuterol inhaler as needed, Senokot at bedtime, Synthroid 0.125 mg at bedtime, vitamin D3 twice a day, MiraLax daily, multivitamin, fish oil daily, Cymbalta 120 mg at bedtime and Zocor 40 mg at bedtime. PQRS: 1. 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 Denies rheumatoid arthritis. 2. Height is 5 feet 4 inches, weight is 188, BMI is 32. 3. Vital signs: Blood pressure 115/65, pulse is 95, respirations 20, oxygen sat is 98. 4. Pain score is 5/10. Fall risk, denies dizziness. Does not need help walking or standing. Has not fallen in the last 3 months. 5. The patient is not on any blood thinners and does have a history of taking antihypertensive medicines. 6. Opioid therapy is greater than 6 weeks; therefore, an opioid signed contract is on the chart. Her risk assessment tool is low. Functional assessment is 17/70. 7. Recreational drug use. She denies. She is not a smoker and occasionally [address] [address] PAIN MANAGEMENT CONSULTATION Name: RAD LINDER Room #: REG PADMINI Blake#: [id number] Admission: 11/08/18 Attend Phys: Keira Shelton Discharge: Date of : 42 Report #: [id number] drinks alcohol. We did check the prescription monitoring system. The patient is filling appropriately with her medications from Dr. Karson Clay. The patient tells me she does safeguard all of her medications. PHYSICAL EXAMINATION: GENERAL: This is a well-developed, well-hydrated 78-year-old female who appears her stated age, placing a pain score of around 5/10 today. HEENT: Normocephalic, atraumatic. Extraocular eye muscles are intact. NECK: No JVD or adenopathy. MUSCULOSKELETAL: Lower extremity strength judged to be 5/5. Straight leg raising is negative. She is able to rise from sitting to standing without difficulty. She does walk with an antalgic gait. IMPRESSION: 1. Lumbar radiculopathy. 2. Displacement of lumbar intervertebral disk with radiculopathy. 3. Lumbosacral spondylosis with radiculopathy. 4. Facet arthropathy of lumbar spine. 5. Chronic lumbar degeneration. 6. Opioid dependency. 7. Chronic intractable pain. We reviewed the fact that opiate medications are being used to provide analgesia adequate to support activities of daily living, not attempting to achieve a specific pain score on the 0-10 Visual Analog Scale. The current opiate medications are providing sufficient analgesia to allow the patient to participate in activities of daily living. The patient is not exhibiting any aberrant behavior suggestive of drug diversion. The patient is not having any adverse reactions to medications. The patient is not suffering from daytime somnolence or mental acuity changes. The patient is managing opiate-induced constipation with appropriate zreu-erg-wldzfiy agents and dietary considerations. The patient was counseled on concern for caution with operating a motor vehicle while using opiate medications. A physical exam was performed and the patient's functional status was evaluated. All patients with back pain were advised against the bed rest greater than 4 days and were advised to return to normal activities. Pain score assessment was noted and the treatment plan was reviewed with the patient. All current medications, both prescribed and OTC were reviewed and reconciled on the electronic medical record. Tobacco screening was accomplished and smoking cessation was advised when indicated. BMI was noted and diet/exercise modification was recommended for all patients following outside normal parameters. I reviewed with the patient today their responsibilities to safeguard prescription medications, reviewed their responsibility to utilize medications [address] [address] PAIN MANAGEMENT CONSULTATION Name: RAD LINDER Room #: REG [facility]#: [id number] Admission: 11/08/18 Attend Phys: Keira COBOS Cat Discharge: Date of : 42 Report #: [id number] only as prescribed by the physician. They are to seek and receive pain medications only from 1 physician group ( [facility]). They are to use 1 pharmacy and keep the clinic informed if they change pharmacies. Their responsibilities include making followup visits in a timely fashion and to avoid abrupt discontinuation of medication usage. Their responsibilities further include bringing their medications (bottles from the pharmacy with residual pills) to the visit for possible confirmation of pill counts and the patient understands it is their responsibility to submit to random drug screens to ensure both that the medications prescribed are present, and that no other controlled substances are present. All prescriptions provided today were generated electronically. PLAN: 1. We discussed treatment options today. The patient tells me that she finds the oxycodone very helpful, does take them 4 total a day, every day. She feels that after about an hour of taking the medication, she has very good relief, almost no pain at all at that time. 2. She is telling me that she does not use her spinal cord stimulator at this time, does not find it very helpful, so she has turned it off currently. 3. Script given today for Percocet 10/325, #120 with release today and 4 weeks. 4. Script nabumetone 750 mg b.i.d., #60 with one additional refill. 5. The patient will be seen in 2 months' time period by Dr. Karson Clay. 6. Care given today in collaboration with Dr. Karson Clay. <ELECTRONICALLY SIGNED> By: Keira Shelton 11/09/18 0811 [id number] Keira Shelton /nt
== END ==
LOC: PAIN 07:15
DX: M47.27 Other spondylosis with radiculopathy, lumbosacral region (principal); M51.16 Intervertebral disc disorders with radiculopathy, lumbar region; G89.4 Chronic pain syndrome; M12.88 Other specific arthropathies, not elsewhere classified, other specified site; F11.20 Opioid dependence, uncomplicated; Z79.899 Other long term (current) drug therapy

== ENCOUNTER → 2019-01-02 | Outpatient (CLI) | payer OTHER ==
[~2019-01-02] VITALS: Ht 162.6 cm; Wt 86.8 kg
[2019-01-02 09:18] VITALS: BP 128/77
--- NOTE | 2019-01-02 09:36 | NUR ---
Pain Clinic Assessment: 1. History of Osteoarthritis: NO History of Rheumatoid Arthritis: NO 2. Height: 5 ft. 4 in. 162.6 cm. Weight: 191.4 lb. oz. 86.819 kg. Patient's BMI: 32.8 3. Vital Signs: BP: 128/77 Pulse: 95 Resp: 16 Temp: 02 Sat: 100 ECG Mon: 4. Pain Intensity: 3 WITH MEDS 5. Fall Risk: Dizziness: N Needs help standing or walking: N Fallen in the last 3 months: N Fall risk comments: 6. Patient on Blood Thinner: None 7. History of Hypertension: Y 8. Opioid Therapy greater than 6 weeks: Y Opiate Contract Signed: 05/04/16 9. Risk Assessment Tool Provided: 1-LOW RISK 10. Functional Assessment Tool: 11. Recreational Drug Use: Never Drug Type: Tobacco Use: Never Smoker Tobacco Type: Amount or Packs/day: How Many Years: Alcohol Use: Yes Frequency: Quant:
--- NOTE | 2019-01-03 07:38 | HPC ---
[facility] [address] [address] PAIN MANAGEMENT CONSULTATION Name: RAD LINDER [facility] [id number] Admission: 01/02/19 ������������������ Attend Phys: Keira Shelton Discharge: ������������������ Date of : 44 Report #: [id number] THIS REPORT FOR: //name// CC: Keira Shelton Physician staff ALESSANDRA TELLEZ DATE OF SERVICE: 01/02/2019 CHIEF COMPLAINT: Low back pain, bilateral lower extremity pain and paresthesias. HISTORY OF PRESENT ILLNESS: The patient returns to the Pain Clinic today for refill of her medications that she uses to treat her chronic ongoing low back pain and bilateral leg pain. The patient tells me that her pain score is a 3 today with her medications. She states her pain is worst in the morning and standing, but her medications and her spinal cord stimulator, which she uses very infrequently, does help relieve her pain or decrease it. The patient denies any constipation. She does take some medicines to help with that on a daily basis. The patient would like a refill today. CURRENT ALLERGIES: AMOXICILLIN. CURRENT MEDICATIONS: Nabumetone 750 mg b.i.d., oxycodone 10/325 up to 4 times a day, lisinopril/hydrochlorothiazide daily, cyclobenzaprine 10 mg b.i.d., bupropion 150 mg daily, Ventolin inhaler as needed, Senokot 2 capsules at bedtime, Synthroid 0.125 mg daily, vitamin D3 2000 units twice a day, MiraLax daily, multivitamin daily, fish oil daily, Cymbalta 120 mg at bedtime and simvastatin 40 mg at bedtime. PQRS: 1. She has a history of osteoarthritis in her lumbar spine. She denies rheumatoid arthritis. 2. Height is 5 feet 4 inches, weight is 191 and BMI is 32. 3. Vital signs: Blood pressure 128/77, pulse is 95, respirations 16 and oxygen sat is 100. 4. Pain score is 3/10. 5. Fall risk. She denies dizziness. Does not need help walking or standing and has not fallen in the last 3 months. 6. The patient is not on any blood thinners but does take medicine for hypertension. 7. Opiate therapy is greater than 6 weeks; therefore, an opiate signed contract is on the chart. 8. Risk assessment tool is low. Her functional assessment is 1770. 9. Recreational drug use, she denies. She is not a smoker and occasionally drinks alcohol. [facility] [address] [place] [address] PAIN MANAGEMENT CONSULTATION Name: RAD LINDER [facility] [id number] Admission: 01/02/19 ������������������ Attend Phys: Keira Shelton Discharge: ������������������ Date of : 44 Report #: [id number] We did check the prescription monitoring system. The patient is filling appropriately from her medicines from Dr. Clay with no aberrant behavior. There is a drug screen on the chart within the past year. The patient tells me that she does safeguard her medications. PHYSICAL EXAMINATION: GENERAL: This is a well-developed, well hydrated 78-year-old female who appears her stated age, placing her pain score today at 3/10. HEENT: Normocephalic and atraumatic. Extraocular eye muscles are intact. Mucous membranes are moist. NECK: Without JVD or adenopathy. MUSCULOSKELETAL: Upper extremity strength judged to be 5/5 in all major muscle groups. Lower extremity strength judged to be 5/5. The patient is able to rise from sitting to standing without difficulty and she does walk with a mild antalgic gait. IMPRESSION: 1. Lumbar radiculopathy. 2. Displacement of lumbar intervertebral disk with radiculopathy. 3. Lumbosacral spondylosis with radiculopathy. 4. Facet arthropathy of the lumbar spine. 5. Chronic lumbar degeneration. 6. Opioid dependency. 7. Chronic intractable pain. We reviewed the fact that opiate medications are being used to provide analgesia adequate to support activities of daily living, not attempting to achieve a specific pain score on the 0-10 Visual Analog Scale. The current opiate medications are providing sufficient analgesia to allow the patient to participate in activities of daily living. The patient is not exhibiting any aberrant behavior suggestive of drug diversion. The patient is not having any adverse reactions to medications. The patient is not suffering from daytime somnolence or mental acuity changes. The patient is managing opiate-induced constipation with appropriate awtj-sxf-scrrtiv agents and dietary considerations. The patient was counseled on concern for caution with operating a motor vehicle while using opiate medications. A physical exam was performed and the patient's functional status was evaluated. All patients with back pain were advised against the bed rest greater than 4 days and were advised to return to normal activities. Pain score assessment was noted and the treatment plan was reviewed with the patient. All current medications, both prescribed and OTC were reviewed and reconciled on the electronic medical record. Tobacco screening was accomplished and smoking cessation was advised when indicated. BMI was noted and diet/exercise modification was recommended for all patients following outside normal [facility] [address] [place] [address] PAIN MANAGEMENT CONSULTATION Name: RAD LINDER Room #: REG PADMINI Blake#: [id number] Admission: 01/02/19 ������������������ Attend Phys: Keira Shelton Discharge: ������������������ Date of : 42 Report #: [id number] parameters. I reviewed with the patient today their responsibilities to safeguard prescription medications, reviewed their responsibility to utilize medications only as prescribed by the physician. They are to seek and receive pain medications only from 1 physician group ( [facility]). They are to use 1 pharmacy and keep the clinic informed if they change pharmacies. Their responsibilities include making followup visits in a timely fashion and to avoid abrupt discontinuation of medication usage. Their responsibilities further include bringing their medications (bottles from the pharmacy with residual pills) to the visit for possible confirmation of pill counts and the patient understands it is their responsibility to submit to random drug screens to ensure both that the medications prescribed are present, and that no other controlled substances are present. All prescriptions provided today were generated electronically. PLAN: 1. We discussed treatment options with the patient today and the patient was informed there is a possibility that the oxycodone medications may be going off the market in the future and if that does happen based on a lawsuit that is pending that we would need to switch her to hydrocodone. The patient verbalizes understanding but does realize that we are currently keeping her at her current Percocet dose of 10/325, #120, four tablets a day for today and 4-week release, which are given to the patient. This places the patient at 60 MME per the CDC guidelines. I explained to her that eventually we would like to get her to 50 MME if able per the CDC guidelines but currently, we will keep her where she is at. 2. Dr. Clay did see the patient and also talked to her about an upcoming injection that is still in the FDA approval process that if approved, he plans on using that medication and therefore, she would get that intramuscular injection in place of any pain pills, she would get this injection every 8-10 weeks here in the office. The patient understands this and thinks that may be a good alternative for treating her pain and is interested in pursuing that when it becomes available. 3. The patient discharged after seeing Dr. Clay and collaborating care with him. The patient will return in 2 months' time for her medications. ��������������������������������������������� <ELECTRONICALLY SIGNED> ���������������������������������������� By: Keira Shelton ��������������������������������������������� 01/03/19 0738 [id number] Keira Shelton /cedric
== END ==
LOC: PAIN 06:52
DX: M47.27 Other spondylosis with radiculopathy, lumbosacral region (principal); M51.16 Intervertebral disc disorders with radiculopathy, lumbar region; M12.88 Other specific arthropathies, not elsewhere classified, other specified site; F11.20 Opioid dependence, uncomplicated; G89.4 Chronic pain syndrome; Z79.899 Other long term (current) drug therapy

== ENCOUNTER → 2019-02-27 | Outpatient (CLI) | payer OTHER ==
[~2019-02-27] VITALS: Ht 162.6 cm; Wt 85.3 kg
[2019-02-27 10:05] VITALS: BP 104/62
--- NOTE | 2019-02-27 10:28 | NUR ---
Pain Clinic Assessment: 1. History of Osteoarthritis: NO History of Rheumatoid Arthritis: NO 2. Height: 5 ft. 4 in. 162.6 cm. Weight: 188.0 lb. oz. 85.276 kg. Patient's BMI: 32.3 3. Vital Signs: BP: 104/62 Pulse: 85 Resp: 20 Temp: 02 Sat: 96 ECG Mon: 4. Pain Intensity: 4 5. Fall Risk: Dizziness: N Needs help standing or walking: N Fallen in the last 3 months: N Fall risk comments: 6. Patient on Blood Thinner: None 7. History of Hypertension: Y 8. Opioid Therapy greater than 6 weeks: Y Opiate Contract Signed: 05/04/16 9. Risk Assessment Tool Provided: 1-LOW RISK 10. Functional Assessment Tool: 11. Recreational Drug Use: Never Drug Type: Tobacco Use: Never Smoker Tobacco Type: Amount or Packs/day: How Many Years: Alcohol Use: Yes Frequency: Weekly Quant: 1-2
--- NOTE | 2019-02-28 07:46 | HPC ---
[facility] [address] [place] [address] PAIN MANAGEMENT CONSULTATION Name: RAD LINDER [facility] [id number] Admission: 02/27/19 ������������������ Attend Phys: Keira Shelton Discharge: ������������������ Date of : 42 Report #: [id number] THIS REPORT FOR: //name// CC: Keira Shelton Physician staff ALESSANDRA Damon DATE OF SERVICE: 02/27/2019 CHIEF COMPLAINT: Low back pain, bilateral lower extremity pain and paresthesias. HISTORY OF PRESENT ILLNESS: This is a very pleasant 78-year-old female, who returned to the pain clinic today for refill of her medications. She tells me that her pain score today is 4/10, mostly in her low back and her left knee. It is a dull achy pain that is worse in the mornings and standing, but better with her medications and her spinal cord stimulator. She tells me that the weather has been making her pain worse lately. The patient tells me that she is actually out of her medicine a couple of days ago and has been using some leftovers from previous months to get to this appointment today. I see that she is a couple of days early for her medication refills. She tells me that with the ongoing weather issues lately, she has been requiring 5 pills on some days, but then other day she does only require 3 pills throughout the day. She would like a refill of these medications today. ALLERGIES: AMOXICILLIN. CURRENT MEDICATIONS: Percocet 10/325 q.i.d., Relafen 750 mg b.i.d., lisinopril/hydrochlorothiazide daily, Flexeril p.r.n., bupropion 150 mg daily, Senokot daily, Synthroid 0.125 at bedtime, vitamin D, MiraLax daily, multivitamin, fish oil, Cymbalta 120 mg at bedtime and Zocor 40 mg at bedtime. PQRS: 1. She has a history of osteoarthritis in her lumbar spine. Denies any rheumatoid arthritis. 2. Height is 5 feet 4 inches, weight is 188. BMI is 32. Vital signs 104/62, pulse is 85, respirations 20, oxygen sat is 96. Pain score is 4/10. 3. Fall risk. Denies dizziness. Does not need help walking or standing. She has not fallen in the last 3 months. The patient is not on any blood thinners, but does take medicine for hypertension. Her opioid therapy is greater than 6 weeks; therefore, an opioid signed contract is on the chart. Her risk assessment tool is low. Her functional assessment is 17/70. 4. Recreational drug use. She denies. She is not a smoker and occasionally drinks alcohol. [address] [address] PAIN MANAGEMENT CONSULTATION Name: RAD LINDER Room #: REG CLMagdalena Blake#: [id number] Admission: 02/27/19 ������������������ Attend Phys: Keira Shelton Discharge: ������������������ Date of : 42 Report #: [id number] We did check the prescription monitoring system. The patient is not due to fill her meds until 03/01/2019 according to prescription refills. We will check a drug screen on her again in the fall. There is one on the chart for the past year. She tells me she does safeguard her medication and is not sharing them with anybody. PHYSICAL EXAMINATION: GENERAL: This is a well-developed, well-hydrated 78-year-old female who appears her stated age. Placing her pain score today at 4/10. HEENT: Normocephalic, atraumatic. Extraocular eye muscles are intact. Mucous membranes are moist. NECK: Without JVD or adenopathy. MUSCULOSKELETAL: Upper extremity strength judged to be 5/5 in all major muscle groups and her lower extremity strength judged to be 5/5 symmetrical as well. She is able to rise from the seated to standing position without difficulty. She does walk with a slightly antalgic gait. Does complain of left knee pain. No swelling have been noted. ASSESSMENT: 1. Lumbar radiculopathy. 2. 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 3. Lumbosacral spondylosis with radiculopathy. 4. Arthroscopy of the lumbar spine. 5. Chronic lumbar degeneration. 6. Opioid dependency. 7. Chronic intractable pain. 8. Left knee pain. We reviewed the fact that opiate medications are being used to provide analgesia adequate to support activities of daily living, not attempting to achieve a specific pain score on the 0-10 Visual Analog Scale. The current opiate medications are providing sufficient analgesia to allow the patient to participate in activities of daily living. The patient is not exhibiting any aberrant behavior suggestive of drug diversion. The patient is not having any adverse reactions to medications. The patient is not suffering from daytime somnolence or mental acuity changes. The patient is managing opiate-induced constipation with appropriate ceil-dic-fmshyzu agents and dietary considerations. The patient was counseled on concern for caution with operating a motor vehicle while using opiate medications. A physical exam was performed and the patient's functional status was evaluated. All patients with back pain were advised against the bed rest greater than 4 days and were advised to return to normal activities. Pain score assessment was noted and the treatment plan was reviewed with the patient. All current medications, both prescribed and OTC were reviewed and reconciled on the [facility] [address] [place] [address] PAIN MANAGEMENT CONSULTATION Name: RAD LINDER Room #: REG [facility].#: [id number] Admission: 02/27/19 ������������������ Attend Phys: Keira Shelton Discharge: ������������������ Date of : 42 Report #: [id number] electronic medical record. Tobacco screening was accomplished and smoking cessation was advised when indicated. BMI was noted and diet/exercise modification was recommended for all patients following outside normal parameters. I reviewed with the patient today their responsibilities to safeguard prescription medications, reviewed their responsibility to utilize medications only as prescribed by the physician. They are to seek and receive pain medications only from 1 physician group ( [facility]). They are to use 1 pharmacy and keep the clinic informed if they change pharmacies. Their responsibilities include making followup visits in a timely fashion and to avoid abrupt discontinuation of medication usage. Their responsibilities further include bringing their medications (bottles from the pharmacy with residual pills) to the visit for possible confirmation of pill counts and the patient understands it is their responsibility to submit to random drug screens to ensure both that the medications prescribed are present, and that no other controlled substances are present. All prescriptions provided today were generated electronically. PLAN: 1. We discussed treatment options with the patient today. The patient is here for a refill of her medications. I reminded the patient that she is to take 4 tablets a day not 5 as those are prescribed for 4 times a day. The patient verbalizes understanding. She said the weather was bad and she was hurting worse. I explained to her, she is unable to get them filled for 2 more days. She verbalizes understanding of that, has been using some leftover from previous months. I encouraged her to try to take the least lowest most effective dose on her good days that will enable her to take five on the bad days and not run out of her pain medicines early, though she is 2 days early today. She verbalizes understanding. We will try and be better about taking 3 on days that she is having less pain. Script given for oxycodone 10/325, #120 for today and 4-week release. 2. The patient's morphine milliequivalent per the CDC guidelines is 60, which falls in the category from 50-90 per the CDC guidelines and therefore that is why we see her every 2 months. I explained to the patient that in the next 2 months, she will see Dr. Carlos Mcqueen for her followup appointment instead of Dr. Karson Clay. It was determined at our recent pain team conference to have her see Dr. Mcqueen to see if he has any alternatives to offer her for better pain control or medication ideas. The patient understands this and is willing to see Dr. Mcqueen for her medication management. 3. Script also given for nabumetone 750 mg b.i.d. #60 with one additional refill. [address] [address] PAIN MANAGEMENT CONSULTATION Name: RAD LINDER Room #: REG Magdal[facility] Blake#: [id number] Admission: 02/27/19 ������������������ Attend Phys: Keira Shelton Discharge: ������������������ Date of : 42 Report #: [id number] 4. The patient will follow up in 2 months. The patient is seen today with Dr. Karson Clay who also collaborated care. ��������������������������������������������� <ELECTRONICALLY SIGNED> ���������������������������������������� By: Keira Shelton ��������������������������������������������� 02/28/19 0746 [id number] Keira Shelton /nt
== END ==
LOC: PAIN 06:49
DX: G89.29 Other chronic pain (principal); M51.16 Intervertebral disc disorders with radiculopathy, lumbar region; M47.816 Spondylosis without myelopathy or radiculopathy, lumbar region; M47.26 Other spondylosis with radiculopathy, lumbar region; M47.27 Other spondylosis with radiculopathy, lumbosacral region; M25.562 Pain in left knee; Z88.1 Allergy status to other antibiotic agents; Z79.891 Long term (current) use of opiate analgesic

== ENCOUNTER → 2019-06-18 | Outpatient (CLI) | payer OTHER ==
[~2019-06-18] VITALS: Ht 162.6 cm; Wt 84.4 kg
--- NOTE | ~2019-06-18 | HPC ---
[facility] [place] [address] PAIN MANAGEMENT CONSULTATION Name: RAD LINDER Room #: REG [facility].#: [id number] Admission: 06/18/19 Attend Phys: Carlos Mcqueen MD Discharge: Date of : 42 Report #: [id number] THIS REPORT FOR: //name// CC: Jaylon Parish MD Physician staff Carlos Damon MD DATE OF SERVICE: 06/18/2019 Followup visit for chronic intractable low back pain. The patient returns to the pain clinic today in followup for medication management. She has longstanding spondylosis with occasional episodes of radiculopathy. She has been seeing Dr. Karson Clay of our clinic since 2012. In the recent meeting, he felt more comfortable if he was not seeing both and receiving similar medications and I have agreed to see her going forward. She is doing fine with her medication. She reports that she takes her oxycodone 10/325, 2 tablets in the morning and she gets 8-10 hours of pain relief, oftentimes, then taking it once again in the evening. Her total number of oxycodone tablets allowed per day is 4 for a number of 120 per month. Her MME is 60. She denies any side effects. She is grateful for the pain relief that she receives and says that she functions much better with simple day-to-day activities including housework, walking, and exercise when the medication is working. She carefully safeguards her medications as required by the opioid agreement. She tries to watch what she eats. She denies use of tobacco. PQRS REVIEW: 1. Positive for osteoarthritis and spondylosis of the spine. 2. She is 5 feet 4 inches, 188 pounds with a BMI of 32. 3. Blood pressure is 103/72, heart rate 88, respirations 16. 4. Pain intensity is 1 after medication in the morning. It could be much higher without medication. 5. She is not a fall risk. 6. No blood thinners. 7. History of hypertension, under treatment. 8. History of opioid agreement most recently signed in 2015. We reviewed the agreement as discussed above. 9. She is at low risk for addiction. 10. Functional assessment score is 24/70. 11. She denies use of tobacco, but enjoys an alcoholic beverage on occasion. [facility] [address] [place] [address] PAIN MANAGEMENT CONSULTATION Name: RAD LINDER Room #: REG [facility].#: [id number] Admission: 06/18/19 Attend Phys: Carlos Mcqueen MD Discharge: Date of : 42 Report #: [id number] Caution offered regarding use of opioids in addition to alcohol. PHYSICAL EXAMINATION: GENERAL: She is pleasant, alert and oriented, without signs of depression or anxiety. She does not appear overmedicated at all. VITAL SIGNS: As noted. NEUROLOGIC: She moves easily from sitting to standing position, has mild antalgic features. She has tenderness across her lumbosacral spine. Straight leg raising is negative. IMPRESSION: 1. Chronic intractable low back pain with radiculopathy, intermittent. 2. Opioid dependence. She is on an opioid agreement and is functioning highly. PLAN: Follow up in the pain clinic at 2-month intervals. Urine drug screen will be performed at my discretion. I have checked the prescription drug monitoring program information with [facility] and there are no unexpected entries. By: [id number] Carlos Mcqueen MD /nt
[2019-06-18 11:21] VITALS: BP 103/72
--- NOTE | 2019-06-18 11:35 | NUR ---
Pain Clinic Assessment: 1. History of Osteoarthritis: NO History of Rheumatoid Arthritis: NO 2. Height: 5 ft. 4 in. 162.6 cm. Weight: 186.0 lb. oz. 84.369 kg. Patient's BMI: 31.9 3. Vital Signs: BP: 103/72 Pulse: 88 Resp: 16 Temp: 02 Sat: 97 ECG Mon: 4. Pain Intensity: 1-AFTER TAKING AM MED 5. Fall Risk: Dizziness: N Needs help standing or walking: N Fallen in the last 3 months: N Fall risk comments: 6. Patient on Blood Thinner: None 7. History of Hypertension: Y 8. Opioid Therapy greater than 6 weeks: Y Opiate Contract Signed: 05/04/16 9. Risk Assessment Tool Provided: 1-LOW RISK 10. Functional Assessment Tool: 11. Recreational Drug Use: Never Drug Type: Tobacco Use: Never Smoker Tobacco Type: Amount or Packs/day: How Many Years: Alcohol Use: Yes Frequency: Quant:
== END ==
LOC: PAIN 06:53
DX: M47.26 Other spondylosis with radiculopathy, lumbar region (principal); F11.20 Opioid dependence, uncomplicated

== ENCOUNTER → 2019-08-20 | Outpatient (CLI) | payer OTHER ==
[~2019-08-20] VITALS: Ht 162.6 cm; Wt 84.7 kg
[2019-08-20 10:17] VITALS: BP 115/76
--- NOTE | 2019-08-20 10:34 | NUR ---
Pain Clinic Assessment: 1. History of Osteoarthritis: DENIES History of Rheumatoid Arthritis: DENIES 2. Height: 5 ft. 4 in. 162.6 cm. Weight: 186.8 lb. oz. 84.732 kg. Patient's BMI: 32.0 3. Vital Signs: BP: 115/76 Pulse: 95 Resp: 16 Temp: 02 Sat: 97 ECG Mon: 4. Pain Intensity: 2-3 5. Fall Risk: Dizziness: N Needs help standing or walking: N Fallen in the last 3 months: N Fall risk comments: 6. Patient on Blood Thinner: None 7. History of Hypertension: Y 8. Opioid Therapy greater than 6 weeks: Y Opiate Contract Signed: 05/04/16 9. Risk Assessment Tool Provided: 1-LOW RISK 10. Functional Assessment Tool: 11. Recreational Drug Use: Never Drug Type: Tobacco Use: Never Smoker Tobacco Type: Amount or Packs/day: How Many Years: Alcohol Use: Yes Frequency: Weekly Quant:
--- NOTE | 2019-08-21 15:30 | HPC ---
[facility] [address] [address] PAIN MANAGEMENT CONSULTATION Name: RAD LINDER [facility] #: [facility] [id number] Admission: 08/20/19 Attend Phys: Keira Shelton Discharge: Date of : 42 Report #: [id number] THIS REPORT FOR: //name// CC: Keira Damon MD DATE OF SERVICE: 08/20/2019 CHIEF COMPLAINT: Chronic intractable low back pain. HISTORY OF PRESENT ILLNESS: This is a very pleasant 79-year-old female who returns to the pain clinic today for refill of her medications for her chronic intractable low back pain. She has had spondylosis with radiculopathy. She does have a spinal cord stimulator in place. She is here questioning today about having that removed as well as any possibility of increasing her oxycodone. She does take this 10/325, 2 tablets in the morning and 2 tablets at night, a total of 4 per day, but is wondering about an increase. She denies any problems with daytime sleepiness or constipation issues as long as she takes stool softener on a regular basis. ALLERGIES: AMOXICILLIN. CURRENT LIST OF MEDICATIONS: Oxycodone 10/325 four times a day, nabumetone 750 mg tablets b.i.d., lisinopril/hydrochlorothiazide daily, Flexeril p.r.n., bupropion 150 mg daily, Senokot daily, Synthroid 0.125 mg daily, vitamin D3, MiraLax p.r.n., multivitamin, fish oil, Cymbalta 120 mg at bedtime and Zocor 40 mg at bedtime. PQRS: 1. She is positive for osteoarthritis and spondylosis of the lumbar spine. Denies any rheumatoid arthritis. 2. Height is 5 feet 4 inches, weight is 186, BMI is 32. 3. Vital signs 115/76, pulse is 95, respirations 16, oxygen sat is 97. 4. Pain score is 2-3. 5. Denies dizziness, does not need help walking or standing, has not fallen in the last 3 months. 6. The patient is not on any blood thinners, but does take medicine for hypertension. 7. Opiate therapy is greater than 6 weeks; therefore, an opioid signed contract is on the chart. Her risk assessment tool is low. Functional assessment is . 8. Recreational drug use, she denies. She is not a smoker and occasionally drinks alcohol. [address] [address] PAIN MANAGEMENT CONSULTATION Name: RAD LINDER Room #: REG [facility]#: [id number] Admission: 08/20/19 Attend Phys: Keira Shelton Discharge: Date of : 42 Report #: [id number] According to the prescription monitoring system, the patient is filling appropriately for her medications in a timely fashion. There is a recent drug screen on the chart as well. PHYSICAL EXAMINATION: GENERAL: This is alert and orientated 79-year-old female who appears younger than her stated age, placing her current pain score today at 2-3. HEENT: Normocephalic, atraumatic. Extraocular eye muscles are intact. Mucous membranes are moist. MUSCULOSKELETAL: She moves from sitting to standing without difficulty. She walks with a slightly antalgic gait. She has pain in her lumbar spine that is increased with lumbar flexion and extension. Her lower extremity strength judged to be 5/5 in all major muscle groups. IMPRESSION: 1. Chronic intractable low back pain with radiculopathy. 2. Lumbosacral spondylosis with radiculopathy. 3. Facet arthroscopy of the lumbar spine. 4. Chronic lumbar degeneration. 5. Opioid dependency. 6. Spinal cord stimulator not in use currently. 7. Opioid management under terms of written agreement. We reviewed the fact that opiate medications are being used to provide analgesia adequate to support activities of daily living, not attempting to achieve a specific pain score on the 0-10 Visual Analog Scale. The current opiate medications are providing sufficient analgesia to allow the patient to participate in activities of daily living. The patient is not exhibiting any aberrant behavior suggestive of drug diversion. The patient is not having any adverse reactions to medications. The patient is not suffering from daytime somnolence or mental acuity changes. The patient is managing opiate-induced constipation with appropriate ecjl-iap-emqafnf agents and dietary considerations. The patient was counseled on concern for caution with operating a motor vehicle while using opiate medications. A physical exam was performed and the patient's functional status was evaluated. All patients with back pain were advised against the bed rest greater than 4 days and were advised to return to normal activities. Pain score assessment was noted and the treatment plan was reviewed with the patient. All current medications, both prescribed and OTC were reviewed and reconciled on the electronic medical record. Tobacco screening was accomplished and smoking cessation was advised when indicated. BMI was noted and diet/exercise modification was recommended for all patients following outside normal parameters. [address] [address] PAIN MANAGEMENT CONSULTATION Name: RAD LINDER Room #: REG [facility]#: [id number] Admission: 08/20/19 Attend Phys: Keira Shelton Discharge: Date of : 42 Report #: [id number] I reviewed with the patient today their responsibilities to safeguard prescription medications, reviewed their responsibility to utilize medications only as prescribed by the physician. They are to seek and receive pain medications only from 1 physician group ( [facility]). They are to use 1 pharmacy and keep the clinic informed if they change pharmacies. Their responsibilities include making followup visits in a timely fashion and to avoid abrupt discontinuation of medication usage. Their responsibilities further include bringing their medications (bottles from the pharmacy with residual pills) to the visit for possible confirmation of pill counts and the patient understands it is their responsibility to submit to random drug screens to ensure both that the medications prescribed are present, and that no other controlled substances are present. All prescriptions provided today were generated electronically. PLAN: 1. We discussed treatment options with the patient today. The patient is finding that the medication is not as beneficial as it has in the past. She does take 2 pills at a time twice a day. She feels that they do wear off, occasionally needing to take an extra half a pill. I explained to her that we are not able to increase her opioid medications. Currently, she is at 60 morphine milliequivalents according to the CDC guidelines. I encouraged her to take 1 tablet every 6 hours and see if she gets more benefit from that way of taking her medication as opposed to taking 2 tablets at a time. I also instructed her that she may take an extra strength Tylenol if need be throughout the day [address] of one her half of oxycodone, she thinks she is needing. The patient states she will try to take her medicines based out throughout the day. 2. The patient is wondering about having her spinal cord stimulator removed. Dr. Parish did place this device greater than 4 years ago. She has not been using this. She found that it was very beneficial for the first several years, but has decreased efficacy and has turned it off for the past few months. It is no longer even turning on even though she recharges it. I explained to her that Dr. Parish would probably only remove the battery pack as her leads will be scarred in place, but his number was given to address this issue. 3. The patient was given a script for nabumetone 750 mg, #180 with 2 additional refills. This is a 3-month supply with plenty of refills. The patient takes this on an as needed basis, has no problems with GI upset from this medicine. 4. The patient is seen in collaboration with Dr. Carlos Mcqueen today. He did see the patient as well. The patient will return in 2 months. <ELECTRONICALLY SIGNED> By: Keira Shelton 08/21/19 1530 1146 07 Keira Shelton /cedric
== END ==
LOC: PAIN 07:04
DX: G89.4 Chronic pain syndrome (principal); M47.27 Other spondylosis with radiculopathy, lumbosacral region; M51.16 Intervertebral disc disorders with radiculopathy, lumbar region; Z88.1 Allergy status to other antibiotic agents; Z79.899 Other long term (current) drug therapy; Z79.891 Long term (current) use of opiate analgesic

== ENCOUNTER → 2019-10-15 | Outpatient (CLI) | payer OTHER ==
[~2019-10-15] VITALS: Ht 162.6 cm; Wt 86.0 kg
[2019-10-15 12:56] VITALS: BP 110/72
--- NOTE | 2019-10-15 13:00 | NUR ---
Pain Clinic Assessment: 1. History of Osteoarthritis: DENIES History of Rheumatoid Arthritis: DENIES 2. Height: 5 ft. 4 in. 162.6 cm. Weight: 189.6 lb. oz. 86.002 kg. Patient's BMI: 32.5 3. Vital Signs: BP: 110/72 Pulse: 93 Resp: 16 Temp: 02 Sat: 100 ECG Mon: 4. Pain Intensity: 2-3 5. Fall Risk: Dizziness: N Needs help standing or walking: N Fallen in the last 3 months: N Fall risk comments: 6. Patient on Blood Thinner: None 7. History of Hypertension: Y 8. Opioid Therapy greater than 6 weeks: Y Opiate Contract Signed: 05/04/16 9. Risk Assessment Tool Provided: 1-LOW RISK 10. Functional Assessment Tool: 11. Recreational Drug Use: Never Drug Type: Tobacco Use: Never Smoker Tobacco Type: Amount or Packs/day: How Many Years: Alcohol Use: Yes Frequency: Quant:
--- NOTE | 2019-10-22 12:21 | HPC ---
[facility] [place] [address] PAIN MANAGEMENT CONSULTATION Name: RAD LINDER Room #: REG [facility].#: [id number] Admission: 10/15/19 Attend Phys: Carlos Mcqueen MD Discharge: Date of : 44 Report #: [id number] THIS REPORT FOR: //name// CC: Carlos Damon MD DATE OF SERVICE: 10/15/2019 PRIMARY CARE PHYSICIAN: Dr. Gisela Damon. Followup visit for chronic back pain and management of chronic and intractable pain with opioid medications under agreement. The patient is here today for renewal of her oxycodone. She has been on longstanding narcotic first initiated nearly 10 years ago. Medications have been continued by Dr. Karson Clay and I recently took her over as her prescribing physician at his request. She has been stable on oxycodone without increase over the last 3-4 years. She finds it helpful in controlling her pain and improving her day-to-day activities. She denies any side effects whatsoever even mild constipation is limited by Senokot. I have reviewed her use of medications with the prescription drug monitoring program. There are no unexpected entries. Along with CHANDRIKA Lucas, I have been seeing her as her primary prescriber of medication. All medications were reviewed and reconciled. In addition to her oxycodone, she is on nabumetone, lisinopril, hydrochlorothiazide, Flexeril, bupropion, Senokot, Synthroid and vitamins. Cymbalta 120 mg at bedtime, Zocor at bedtime. ALLERGIES: AMOXICILLIN. PQRS REVIEW: Positive for osteoarthritis. Her BMI 32. Blood pressure 110/72, heart rate 93, respirations 16, pain intensity with medication 2-3/. She is not a fall risk, is on no blood thinner medications and hypertension has been well controlled. Opioid agreement has been signed. Her risk assessment score is 1 suggesting low risk of addiction and her functional assessment is really quite good with the use of medication. She denies use of tobacco, occasionally has an alcoholic beverage and she was cautioned about combination and additive effects of opioids. PHYSICAL EXAMINATION: Pleasant, alert and oriented, moves easily from sitting to standing position, her gait is mildly antalgic. She has tenderness in her spine. Pain with flexion and extension. Straight leg raising is negative. Normal strength and sensation in the lower extremities. She has a spinal cord battery in place, but it is no longer working and she does not use it for control of pain. [address] [address] PAIN MANAGEMENT CONSULTATION Name: RAD LINDER Room #: REG [facility]#: [id number] Admission: 10/15/19 Attend Phys: Carlos Mcqueen MD Discharge: Date of : 42 Report #: [id number] IMPRESSION: 1. Chronic intractable low back pain. 2. Lumbar radiculopathy. 3. Management of high risk medications for chronic intractable pain. She is on an opioid agreement and has managed well. PLAN: Under terms of our written agreement, I have provided her with medications. She will carefully safeguard these medications. Released prescriptions were provided for 2 months. I plan to see her back in the pain clinic in November. No other changes in medication. <ELECTRONICALLY SIGNED> By: Carlos Mcqueen MD 10/22/19 1221 [id number] Carlos Mcqueen MD /nt
== END ==
LOC: PAIN 06:51
DX: G89.4 Chronic pain syndrome (principal); M54.16 Radiculopathy, lumbar region; Z79.891 Long term (current) use of opiate analgesic

== ENCOUNTER → 2019-12-06 | Outpatient (CLI) | payer OTHER ==
[~2019-12-06] VITALS: Ht 162.6 cm; Wt 85.7 kg
[~2019-12-06] MED LIST changes: +IMITREX100 MG PO
[2019-12-06 10:13] VITALS: BP 121/80
--- NOTE | 2019-12-06 10:17 | NUR ---
Pain Clinic Assessment: 1. History of Osteoarthritis: DENIES History of Rheumatoid Arthritis: DENIES 2. Height: 5 ft. 4 in. 162.6 cm. Weight: 189.0 lb. oz. 85.730 kg. Patient's BMI: 32.4 3. Vital Signs: BP: 121/80 Pulse: 89 Resp: 16 Temp: 02 Sat: 98 ECG Mon: 4. Pain Intensity: 4 5. Fall Risk: Dizziness: N Needs help standing or walking: N Fallen in the last 3 months: Y Fall risk comments: 6. Patient on Blood Thinner: None 7. History of Hypertension: Y 8. Opioid Therapy greater than 6 weeks: Y Opiate Contract Signed: 05/04/16 9. Risk Assessment Tool Provided: 1-LOW RISK 10. Functional Assessment Tool: 11. Recreational Drug Use: Never Drug Type: Tobacco Use: Never Smoker Tobacco Type: Amount or Packs/day: How Many Years: Alcohol Use: Yes Frequency: Special Occasions Quant: 1
--- NOTE | 2019-12-11 08:34 | HPC ---
[facility] [address] [place] [address] PAIN MANAGEMENT CONSULTATION Name: RAD LINDER [id number] Admission: 12/06/19 Attend Phys: Keira Shelton Discharge: Date of : 42 Report #: [id number] THIS REPORT FOR: cc: ALESSANDRA TELLEZ MD, ALESSANDRA Shelton,Keira COBOS ~ THIS REPORT FOR: //name// CC: Keira TELLEZ DATE OF SERVICE: 12/06/2019 CHIEF COMPLAINT: Chronic low back pain. HISTORY OF PRESENT ILLNESS: This is a 79-year-old female who returns to the pain clinic today for a refill of her medications that she uses to help treat her ongoing low back pain that radiates into her legs at times. She is rating her pain score a 4/10 today, worse with activity and prolonged standing. She feels that the medications are very beneficial. She has been on oxycodone for several years, and has not had problems with constipation or daytime sleepiness as a result of these medications. Today, she would like a refill of these medications. ALLERGIES: AMOXICILLIN. CURRENT LIST OF MEDICATIONS: Imitrex, oxycodone 10/325 b.i.d. p.r.n., nabumetone 750, lisinopril/hydrochlorothiazide, Flexeril, bupropion, senna, levothyroxine, vitamin D, MiraLax, multivitamin, fish oil, duloxetine and Zocor. PQRS: 1. She is positive for osteoarthritis. Denies any rheumatoid arthritis. 2. Height is 5 feet 4 inches, weight is 189, BMI is 32. 3. Vital signs; blood pressure 121/80, pulse is 89, respirations 16, oxygen sat is 98. 4. Pain score is 4/10. 5. Denies dizziness, does not need help with walking. She has fallen in the last 3 months, but did not hurt herself or see a physician. 6. The patient is not on any blood thinners, but does take medicine for hypertension. Her opioid therapy is greater than 6 weeks; therefore, an opioid signed contract is on the chart. Risk assessment tool is low. Functional assessment is . 7. She denies any recreational drug use or tobacco use. She occasionally drinks alcohol. According to the prescription monitoring system, the patient is using these [facility] [address] [place] [address] PAIN MANAGEMENT CONSULTATION Name: RAD LINDER Room #: REG [facility]#: [id number] Admission: 12/06/19 Attend Phys: Keira Shelton Discharge: Date of : 42 Report #: [id number] appropriately. Her refill is due early next week; she is on time. Her morphine mEq according to the CDC guidelines is 60. We will collect a random drug screen on this patient today. PHYSICAL EXAMINATION: GENERAL: This is an alert and orientated 79-year-old female who appears her stated age. HEENT: Normocephalic, atraumatic. Extraocular eye muscles are intact. MUSCULOSKELETAL: She moves easily from the sitting to standing position. She walks with a mildly antalgic gait. She has a spinal cord stimulator in place, which is no longer working. She has tenderness in her lumbosacral area of her spine and good sensation from L1-S2. Lower extremity strength judged to be 5/5 in all major muscle groups. Straight leg raising is negative. IMPRESSION: 1. Chronic intractable low back pain. 2. Lumbar radiculopathy. 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 4. Management of high risk medications under terms of written opioid agreement. PLAN: We discussed treatment options with the patient today. The patient finds her medication is helping with sufficient analgesia, allowing her to participate in activities. She is not having any problems with side effects or constipation. We will refill her oxycodone 10/325, #60 for today and 4-week release; these will be sent electronically by Dr. Carlos Mcqueen. He did discuss care with me and collaborated on this patient today. <ELECTRONICALLY SIGNED> By: Keira Shelton 12/11/19 0834 1055 [id number] Keira Shelton /cedric
== END ==
LOC: PAIN 07:50
DX: Z76.0 Encounter for issue of repeat prescription (principal); M54.16 Radiculopathy, lumbar region; G89.4 Chronic pain syndrome; Z79.891 Long term (current) use of opiate analgesic; Z79.899 Other long term (current) drug therapy; Z88.1 Allergy status to other antibiotic agents

== ENCOUNTER → 2020-02-05 | Outpatient (CLI) | payer OTHER ==
[~2020-02-05] VITALS: Ht 162.6 cm; Wt 84.6 kg
[2020-02-05 10:45] VITALS: BP 132/82
--- NOTE | 2020-02-05 10:54 | NUR ---
Pain Clinic Assessment: 1. History of Osteoarthritis: DENIES History of Rheumatoid Arthritis: DENIES 2. Height: 5 ft. 4 in. 162.6 cm. Weight: 186.6 lb. oz. 84.641 kg. Patient's BMI: 32.0 3. Vital Signs: BP: 132/82 Pulse: 99 Resp: 18 Temp: 02 Sat: 97 ECG Mon: 4. Pain Intensity: 3-4 5. Fall Risk: Dizziness: N Needs help standing or walking: N Fallen in the last 3 months: N Fall risk comments: 6. Patient on Blood Thinner: None 7. History of Hypertension: Y 8. Opioid Therapy greater than 6 weeks: Y Opiate Contract Signed: 05/04/16 9. Risk Assessment Tool Provided: 1-LOW RISK 10. Functional Assessment Tool: 11. Recreational Drug Use: Never Drug Type: Tobacco Use: Never Smoker Tobacco Type: Amount or Packs/day: How Many Years: Alcohol Use: Yes Frequency: Special Occasions Quant:
--- NOTE | 2020-02-06 09:01 | HPC ---
[facility] [address] [place] [address] PAIN MANAGEMENT CONSULTATION Name: RAD LINDER Room #: REG [facility].#: [id number] Admission: 02/05/20 Attend Phys: Keira Shelton Discharge: Date of : 42 Report #: [id number] THIS REPORT FOR: cc: FAM - No family physician/PCP FAM - No family physician/PCP Keira Shelton ~ CC: Carlos Mcqueen MD DATE OF SERVICE: 02/05/2020 CHIEF COMPLAINT: Chronic low back pain. HISTORY OF PRESENT ILLNESS: This is a very pleasant 79-year-old female who returns to the pain clinic today for refill of her medications that she uses to help treat her ongoing low back pain occasionally also in her mid back, she is rating her pain score at 3-4 today. It is intermittent, dull pain, occasionally worse with standing and prolonged sitting. She feels that medication as well as activity, she currently rides her bike about 45 minutes every day and occasionally does walk is very beneficial except that she is wanting a slight increase in her medications today. She states that at times 4 pills is not enough wondering if she may have five pills of her Percocet 10/325 per day. The patient denies any problems with constipation as long as she does take Colace on a regular basis. ALLERGIES: AMOXICILLIN. CURRENT LIST OF MEDICATIONS: Oxycodone 10/325 p.r.n., Imitrex, nabumetone 750 mg b.i.d., Zestoretic, Flexeril p.r.n., bupropion, albuterol inhaler, senna, levothyroxine, vitamin D, MiraLax, multivitamin, fish oil, Cymbalta, and Zocor. PQRS: 1. She is positive for osteoarthritis and denies any rheumatoid arthritis. 2. Height is 5 feet 4 inches, weight is 186, BMI is 32. Vital signs; blood pressure 132/82, pulse is 99, respirations 18, and oxygen sat is 97%. 3. Pain score is 3-4. 4. Denies dizziness, does not need help walking or standing, has not fallen in the last 3 months. 5. The patient is not on any blood thinners, but does take medicine for hypertension. 6. Opioid therapy is greater than 6 weeks; therefore, an opioid signed contract is on the chart. Risk assessment tool is low. Functional assessment is 24/70. 7. Recreational drug use, she denies. She is not a smoker and occasionally drinks alcohol. According to the prescription monitoring system, the patient's morphine milliequivalent is 70 MME per day. [place] [address] PAIN MANAGEMENT CONSULTATION Name: RAD LINDER Room #: REG [facility]#: [id number] Admission: 02/05/20 Attend Phys: Keira CHANDRIKA Shelton Discharge: Date of : 42 Report #: [id number] Carlos Mcqueen. PHYSICAL EXAMINATION: GENERAL: This is alert and orientated, very pleasant 79-year-old female who appears her stated age, placing her current pain score at 4/10 today. HEENT: Normocephalic and atraumatic. Extraocular eye muscles are intact. Mucous membranes are moist. MUSCULOSKELETAL: She moves from sitting to standing without any difficulty. She has a slightly antalgic gait. She has pain in her lumbar spine that radiates into her buttocks. Pain is increased with flexion and extension. She has good sensation from L1-S2 with lower extremity strength generalized equal at 5/5 in all major muscle groups. She has a spinal cord stimulator in place, which is not working. IMPRESSION: 1. Chronic low back pain. 2. Lumbar radiculopathy. 3. Failed spinal cord stimulator. 4. Management of high risk medications under terms of written opioid agreement. We reviewed the fact that opiate medications are being used to provide analgesia adequate to support activities of daily living, not attempting to achieve a specific pain score on the 0-10 Visual Analog Scale. The current opiate medications are providing sufficient analgesia to allow the patient to participate in activities of daily living. The patient is not exhibiting any aberrant behavior suggestive of drug diversion. The patient is not having any adverse reactions to medications. The patient is not suffering from daytime somnolence or mental acuity changes. The patient is managing opiate-induced constipation with appropriate [id number] agents and dietary considerations. The patient was counseled on concern for caution with operating a motor vehicle while using opiate medications. A physical exam was performed and the patient's functional status was evaluated. All patients with back pain were advised against the bed rest greater than 4 days and were advised to return to normal activities. Pain score assessment was noted and the treatment plan was reviewed with the patient. All current medications, both prescribed and OTC were reviewed and reconciled on the electronic medical record. Tobacco screening was accomplished and smoking cessation was advised when indicated. BMI was noted and diet/exercise modification was recommended for all patients following outside normal parameters. I reviewed with the patient today their responsibilities to safeguard prescription medications, reviewed their responsibility to utilize medications only as prescribed by the physician. They are to seek and receive pain medications only from 1 physician group ([facility]). They are to use [address] [address] PAIN MANAGEMENT CONSULTATION Name: RAD LINDER Room #: REG [facility]#: [id number] Admission: 02/05/20 Attend Phys: Keira Shelton Discharge: Date of : 42 Report #: [id number] pharmacy and keep the clinic informed if they change pharmacies. Their responsibilities include making followup visits in a timely fashion and to avoid abrupt discontinuation of medication usage. Their responsibilities further include bringing their medications (bottles from the pharmacy with residual pills) to the visit for possible confirmation of pill counts and the patient understands it is their responsibility to submit to random drug screens to ensure both that the medications prescribed are present, and that no other controlled substances are present. All prescriptions provided today were generated electronically. PLAN: 1. We discussed treatment options with the patient today. The patient is requesting an increase in her oxycodone to 5 tablets a day. She reports that her takes this and was wondering if she is able to increase as well. I discussed the CDC guidelines with her stating that her morphine milliequivalent is currently at 70 morphine milligram per day, we are trying to keep our patients at the lowest most effective dose. She has been on a long-acting medication in the past, which we did taper her down. I encouraged the patient during this time of COVID to be as active as possible, not to be at home, sometimes people's pain does increase with inactivity. She reports she is using a bike 45 minutes a day and does feel better after she has exercised. I encouraged the patient to try to keep her medicines at 4 times a day and possibly supplement with occasional extra strength Tylenol one time throughout the day that I will ask Dr. Carlos Mcqueen if we are able to increase in the future. 2. Scripts given today for Percocet , #120. These will be sent electronically by Dr. Carlos Mcqueen. At this time, we will not have any increase in her medicines. 3. The patient is not needing nabumetone, which she does take it on a daily basis and has been for quite some time. I explained to her that they are having people stop the nonsteroidals if they take them on a p.r.n. basis. She may continue her since she takes it on a daily basis. 4. The patient will return in 2 months. At that time, we will readdress possible changes in her medications. The patient is seen today in collaboration with Dr. Carlos Mcqueen. <ELECTRONICALLY SIGNED> By: Keira Shelton 02/06/20 0901 1236 [id number] Keira Shelton /cedric
== END ==
LOC: PAIN 07:21
DX: M54.16 Radiculopathy, lumbar region (principal); F11.20 Opioid dependence, uncomplicated; Z96.82 Presence of neurostimulator; Z88.8 Allergy status to other drugs, medicaments and biological substances; Z79.899 Other long term (current) drug therapy

== ENCOUNTER → 2020-03-31 | Outpatient (CLI) | payer OTHER | LOC: PAIN 07:05 | DX: M54.16 Radiculopathy, lumbar region (principal); G89.29 Other chronic pain; F11.90 Opioid use, unspecified, uncomplicated; Z88.1 Allergy status to other antibiotic agents; Z79.899 Other long term (current) drug therapy ==

== ENCOUNTER → 2020-06-02 | Outpatient (CLI) | payer OTHER ==
[~2020-06-02] VITALS: Ht 162.6 cm; Wt 83.6 kg
[2020-06-02 10:14] VITALS: BP 145/81
--- NOTE | 2020-06-02 10:34 | NUR ---
Pain Clinic Assessment: 1. History of Osteoarthritis: DENIES History of Rheumatoid Arthritis: DENIES 2. Height: 5 ft. 4 in. 162.6 cm. Weight: 184.4 lb. oz. 83.643 kg. Patient's BMI: 31.6 3. Vital Signs: BP: 145/81 Pulse: 91 Resp: 16 Temp: 02 Sat: 100 ECG Mon: 4. Pain Intensity: 3-4 5. Fall Risk: Dizziness: N Needs help standing or walking: N Fallen in the last 3 months: N Fall risk comments: 6. Patient on Blood Thinner: None 7. History of Hypertension: Y 8. Opioid Therapy greater than 6 weeks: Y Opiate Contract Signed: 05/04/16 9. Risk Assessment Tool Provided: 1-LOW RISK 10. Functional Assessment Tool: 11. Recreational Drug Use: Never Drug Type: Tobacco Use: Never Smoker Tobacco Type: Amount or Packs/day: How Many Years: Alcohol Use: Yes Frequency: Quant:
--- NOTE | 2020-06-02 13:41 | HPC ---
[facility] [address] [address] PAIN MANAGEMENT CONSULTATION Name: RAD LINDER [id number] Admission: 06/02/20 Attend Phys: Keira Shelton Discharge: Date of : 42 Report #: [id number] THIS REPORT FOR: cc: ALESSANDRA TELLEZ MD, STACY C. MD Hocker, Amanda CNS ~ CC: Carlos Mcuqeen MD DATE OF SERVICE: 06/02/2020 CHIEF COMPLAINT: Chronic back pain. HISTORY OF PRESENT ILLNESS: This is a very pleasant 79-year-old female who returns to the pain clinic today for refill of her opioid medications and to discuss a possible increase of her medication. The patient is reporting a pain score of 3-4 today across her lower back. She feels that it is a dull, intermittent pain that is worse with sleeping at night, prolonged standing and weather changes. She feels that the medication is beneficial, but at times she is reporting that she is needing more at bedtime to help get her through the night. Therefore she feels that she has not enough medication to last during the day. The patient is wanting to discuss changes in that medication. She denies problems with constipation or daytime somnolence as a result of her medication. The patient has recently been given a new puppy from her and that has been keeping her more active. She feels that in a way it has been better for her to be more active and she has lost 4 pounds since our last visit, though at times she also reports that it does increase her back pain. ALLERGIES: AMOXICILLIN. CURRENT LIST OF MEDICATIONS: Oxycodone 10/325 four times a day, nabumetone 750 mg b.i.d., Imitrex, Zestoretic, Flexeril, bupropion, Senokot, levothyroxine, vitamin D, MiraLax, multivitamin, fish oil, Cymbalta, and simvastatin. PQRS: She has arthritic changes in her back. She denies any rheumatoid arthritis. Height is 5 feet 4 inches, weight is 184, BMI is 31. Vital signs 145/81, pulse is 91, respirations 16, oxygen sat is 100, pain score is 3-4. Fall risk. Denies dizziness, does not need help walking or standing, has not fallen in the last 3 months. She is not on any blood thinners, but does take medicine for hypertension. Her opioid therapy is greater than 6 weeks; therefore, an opioid signed contract is on the chart. Risk assessment is low. Functional assessment is 38/70. Recreational drug use, she denies. She is not a smoker and does occasionally drink alcohol. According to the prescription monitoring system, her morphine milliequivalent [facility] [address] [place] [address] PAIN MANAGEMENT CONSULTATION Name: LINDERRAD Krishnan Room #: REG [facility]#: [id number] Admission: 06/02/20 Attend Phys: Keira Shelton Discharge: Date of : 42 Report #: [id number] per day is 60 morphine milliequivalents according to the CDC guidelines. PHYSICAL EXAMINATION: GENERAL: This is a well-developed, well-nourished, alert and orientated 79-year-old who appears her stated age, placing her current pain score at 3-4 today. HEENT: Normocephalic, atraumatic. Extraocular eye muscles are intact. She is wearing a mask. MUSCULOSKELETAL: She has a slightly antalgic gait, but does move from sitting to standing without using the armrest. She has tenderness across the lumbar spine that radiates into her buttocks. Pain is increased with flexion and extension. Her upper and lower extremity strength judged to be 5/5 in all major muscle groups. She does have a spinal cord stimulator in place as well. Straight leg raising is negative. IMPRESSION: 1. Chronic intractable low back pain. 2. Lumbar radiculopathy. 3. Management of high risk medications under terms of written opioid agreement. 4. Failed spinal cord stimulator. PLAN: 1. We discussed treatment options with the patient today. The patient finds at times her medication is not as beneficial lasting quite as long. She is requiring more medication at bedtime. I encouraged her to try one and half tablets of her Percocet as well as 1 extra strength Tylenol at bedtime, therefore giving her a half a tablet of pain medicine to take upon arising with a Tylenol Extra Strength as well. She is able to take 2 full tablets throughout the day. This would raise her Tylenol level to 2300 well below the recommended amount. The patient is willing to try this for the next month instead of trying an increase in pain pills, which I stated that would be up to Dr. Mcqueen's discretion. 2. Dr. Carlos Mcqueen will send them electronically for Percocet , #120 for today and 4-week supply. 3. I will refill her nabumetone 750, #180 with 3 refills. This is a year supply that she will send to her mail off and I will send electronically a 1-month script for her to take until that one is returned. 4. The patient is seen today in collaboration with Dr. Carlos Mcqueen. She will return in 2 months' time. <ELECTRONICALLY SIGNED> By: Keira Shelton 06/02/20 1341 1101 1139 Keira ramirez
== END ==
LOC: PAIN 06:45
PROVIDERS: ATTEND Clinical Nurse Specialist Adult Health
DX: M54.16 Radiculopathy, lumbar region (principal); G89.29 Other chronic pain; T85.192D Other mechanical complication of implanted electronic neurostimulator of spinal cord electrode (lead), subsequent encounter; F11.20 Opioid dependence, uncomplicated; Z88.8 Allergy status to other drugs, medicaments and biological substances; Z79.899 Other long term (current) drug therapy

== ENCOUNTER → 2020-08-04 | Outpatient (CLI) | payer OTHER ==
[~2020-08-04] VITALS: Ht 162.6 cm; Wt 83.9 kg
[2020-08-04 12:40] VITALS: BP 144/88
--- NOTE | 2020-08-04 12:47 | NUR ---
Pain Clinic Assessment: 1. History of Osteoarthritis: DENIES History of Rheumatoid Arthritis: DENIES 2. Height: 5 ft. 4 in. 162.6 cm. Weight: 185.0 lb. oz. 83.916 kg. Patient's BMI: 31.7 3. Vital Signs: BP: 144/88 Pulse: 89 Resp: 14 Temp: 02 Sat: 96 ECG Mon: 4. Pain Intensity: 6 5. Fall Risk: Dizziness: N Needs help standing or walking: N Fallen in the last 3 months: N Fall risk comments: 6. Patient on Blood Thinner: None 7. History of Hypertension: Y 8. Opioid Therapy greater than 6 weeks: Y Opiate Contract Signed: 05/04/16 9. Risk Assessment Tool Provided: 1-LOW RISK 10. Functional Assessment Tool: 11. Recreational Drug Use: Never Drug Type: Tobacco Use: Never Smoker Tobacco Type: Amount or Packs/day: How Many Years: Alcohol Use: Yes Frequency: Weekly Quant:
--- NOTE | 2020-08-05 07:57 | HPC ---
[facility] [address] [place] [address] PAIN MANAGEMENT CONSULTATION Name: RAD LINDER Room #: REG PADMINI Mo.#: [id number] Admission: 08/04/20 Attend Phys: Keira Shelton Discharge: Date of : 44 Report #: [id number] CC: Keira TELLEZ DATE OF SERVICE: 08/04/2020 CHIEF COMPLAINT: Chronic low back pain. HISTORY OF PRESENT ILLNESS: This is a very pleasant 80-year-old female who returns to the pain clinic today to discuss her opioid medications. She is requesting a slight increase in her medications due to the fact that she has had to stop her nabumetone due to some elevated kidney function tests; therefore, she states that her pain has increased slightly rating it a 6/10 today. It is a dull, intermittent pain in her low back that does radiate into her buttocks. She believes that prolonged sitting and weather changes do increase her pain. Overall, she feels like the medication is beneficial, though she has been having some increased joint pain since stopping her nabumetone. ALLERGIES: AMOXICILLIN. CURRENT LIST OF MEDICATIONS: Percocet 10/325 p.r.n., Imitrex, Zestoretic, Flexeril, bupropion, Ventolin, Senna, Synthroid, vitamin D, MiraLax, fish oil, Cymbalta, and Zocor. PQRS: 1. 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 Denies any rheumatoid arthritis. 2. Height is 5 feet 4 inches, weight is 185, BMI is 31. 3. Vital signs; blood pressure 144/88, pulse is 89, respirations 14, oxygen sat is 96. 4. Pain score is 6/10. 5. Denies dizziness, does not need help walking or standing, has not fallen in the last 3 months. 6. The patient is not on any blood thinners, but does take medicine for hypertension. 7. Opioid therapy is greater than 6 weeks; therefore, an opioid signed contract is on the chart. Risk assessment is low. Functional assessment is 38/70. 8. Recreational drug use, she denies. She is not a smoker and occasionally drinks alcohol. According to the prescription monitoring system, the patient is filling appropriately in a timely fashion. Her morphine milliequivalent is 60 MMEs. There is a recent drug screen on the chart that is appropriate as well. PHYSICAL EXAMINATION: GENERAL: This is alert and orientated, very pleasant 80-year-old female who appears her stated age, placing her current pain score at 6-7 today. HEENT: Normocephalic, atraumatic. Extraocular eye muscles are intact. She is wearing a mask and glasses. MUSCULOSKELETAL: She has tenderness in the lumbosacral region that radiates into her buttocks. Her lower extremity strength is symmetrical at 5/5 in all major muscle groups. She does have a spinal cord stimulator in place in her buttock. She has a slightly antalgic gait and she moves from sitting to standing position using the arm rest today. IMPRESSION: 1. Chronic intractable low back pain. 2. Lumbar radiculopathy. 3. Failed spinal cord stimulator. 4. Management of high risk medications under terms of written agreement. We reviewed the fact that opiate medications are being used to provide analgesia adequate to support activities of daily living, not attempting to achieve a specific pain score on the 0-10 Visual Analog Scale. The current opiate medications are providing sufficient analgesia to allow the patient to participate in activities of daily living. The patient is not exhibiting any aberrant behavior suggestive of drug diversion. The patient is not having any adverse reactions to medications. The patient is not suffering from daytime somnolence or mental acuity changes. The patient is managing opiate-induced constipation with appropriate toic-zcu-bfjboli agents and dietary considerations. The patient was counseled on concern for caution with operating a motor vehicle while using opiate medications. PLAN: 1. We discussed treatment options with the patient today. The patient has been able to take her nabumetone, which she does find beneficial in helping some of her arthritic changes. She has some elevation in kidney function tests, so therefore she is needed to stop this medication. She has noticed an increase in her pain and is wondering about increasing her medication. I explained to her that we are not able to increase her oxycodone use due to the fact that she is already above the recommended CDC guidelines at 60 morphine mEq a day. I encouraged her to take her Tylenol Extra Strength, periodically throughout the day, which she has been doing and instructed her to talk to her air quality engineer about Voltaren gel when she sees him in August or possibly taking her nabumetone one time a day if her functions of her kidney allow it. The patient verbalizes understanding. 2. We will have Dr. Carlos Mcqueen send her Percocet to her pharmacy for today and 4-week supply. The patient is seen today in collaboration with Dr. Carlos Mcqueen. <ELECTRONICALLY SIGNED> By: Keira Shelton 08/05/20 [id number] Keira Shelton /cedric
== END ==
LOC: PAIN 06:53
PROVIDERS: ATTEND Clinical Nurse Specialist Adult Health
DX: M54.16 Radiculopathy, lumbar region (principal); G89.29 Other chronic pain; M96.1 Postlaminectomy syndrome, not elsewhere classified; F11.20 Opioid dependence, uncomplicated; Z88.8 Allergy status to other drugs, medicaments and biological substances; Z79.899 Other long term (current) drug therapy

== ENCOUNTER → 2020-10-01 | Outpatient (CLI) | payer OTHER ==
[~2020-10-01] VITALS: Ht 162.6 cm; Wt 85.5 kg
[2020-10-01 10:28] VITALS: BP 130/88
--- NOTE | 2020-10-01 10:52 | NUR ---
Pain Clinic Assessment: 1. History of Osteoarthritis: DENIES History of Rheumatoid Arthritis: DENIES 2. Height: 5 ft. 4 in. 162.6 cm. Weight: 188.4 lb. oz. 85.458 kg. Patient's BMI: 32.3 3. Vital Signs: BP: 130/88 Pulse: 89 Resp: 16 Temp: 02 Sat: 97 ECG Mon: 4. Pain Intensity: 2-3 5. Fall Risk: Dizziness: N Needs help standing or walking: N Fallen in the last 3 months: N Fall risk comments: 6. Patient on Blood Thinner: None 7. History of Hypertension: Y 8. Opioid Therapy greater than 6 weeks: Y Opiate Contract Signed: 05/04/16 9. Risk Assessment Tool Provided: 1-LOW RISK 10. Functional Assessment Tool: 11. Recreational Drug Use: Never Drug Type: Tobacco Use: Never Smoker Tobacco Type: Amount or Packs/day: How Many Years: Alcohol Use: Yes Frequency: Weekly Quant: 1
--- NOTE | 2020-10-01 15:16 | HPC ---
[facility] [place] [address] PAIN MANAGEMENT CONSULTATION Name: RAD LINDER Room #: REG [facility] Chepe.#: [id number] Admission: 10/01/20 Attend Phys: Keira Shelton Discharge: Date of : 42 Report #: [id number] THIS REPORT FOR: cc: ALESSANDRA TELLEZ MD, STACY C. MD Hocker,Keira COBOS ~ DATE OF SERVICE: 10/01/2020 CHIEF COMPLAINT: Chronic low back pain. HISTORY OF PRESENT ILLNESS: This is a very pleasant 80-year-old female who returns to the pain clinic today for renewal of her opioid medications. Today, she is reporting a pain score of 2-3, feeling that her medications are beneficial in helping with her low back pain. She reports that it is intermittent tightness, worse at bedtime, therefore she does adjust her medication to take 2 tablets at bedtime and then 1 tablet throughout the day with an Extra Strength Tylenol. She believes this is very beneficial in helping control her pain. She no longer uses her spinal cord stimulator device. We did briefly discuss removing the battery pack, but the patient reports it is not bothersome. She reports constipation is managed with Senokot and MiraLax. The patient had stopped her nabumetone due to some joint pain as well as increase in liver enzymes. She has had this blood work rechecked and her liver enzymes remain low; therefore, she has remained off of this medication. ALLERGIES: AMOXICILLIN. CURRENT LIST OF MEDICATIONS: Oxycodone 325 p.r.n., Imitrex, Zestoretic, bupropion, Ventolin inhaler, senna, Synthroid, vitamin D, MiraLax, multivitamin, Cymbalta, and simvastatin. PQRS: 1. She has arthritic changes in her lumbar spine. Denies any rheumatoid arthritis. 2. Height is 5 feet 4 inches, weight is 188, BMI is 32. 3. Vital signs 130/88, pulse is 89, respirations 16, oxygen sat is 97%. 4. Pain score is 2-3. 5. Denies dizziness, does not need help walking or standing, has not fallen in the last 3 months. 6. The patient is not on any blood thinners, but does take medicine for hypertension. 7. Opioid therapy is greater than 6 weeks; therefore, an opioid signed contract is on the chart. Risk assessment is low. Functional assessment is 38/70. 8. Recreational drug use, she denies. She is not a smoker [place] [address] PAIN MANAGEMENT CONSULTATION Name: RAD LINDER Room #: REG Magdalena Mo.#: [id number] Admission: 10/01/20 Attend Phys: Keira Shelton Discharge: Date of : 42 Report #: [id number] According to the prescription monitoring system, she is due to fill her medications, filling them in a timely fashion from Dr. Carlos Mcqueen. Today, she will fill from Dr. Dyer who is covering for him and collaborating care. Her morphine mEq is 60 MMEs. There is a random drug screen on the chart that is appropriate for her medications. PHYSICAL EXAMINATION: GENERAL: This is alert and orientated, well-developed 80-year-old female, who appears her stated age. She is a good historian, placing her current pain score 2-3. HEENT: Normocephalic, atraumatic. Extraocular eye muscles are intact. She is wearing a mask. MUSCULOSKELETAL: She has a spinal cord stimulator in place in her buttock that is no longer in use. She has tenderness in her lumbosacral region that radiates into her bilateral buttocks, not into her legs bilaterally. Her strength is symmetrical at 5/5 in her lower extremities. She has an antalgic gait. IMPRESSION: 1. Chronic intractable low back pain. 2. Lumbar radiculopathy. 3. Failed spinal cord stimulator. 4. Management of high risk medications under written opioid agreement. We reviewed the fact that opiate medications are being used to provide analgesia adequate to support activities of daily living, not attempting to achieve a specific pain score on the 0-10 Visual Analog Scale. The current opiate medications are providing sufficient analgesia to allow the patient to participate in activities of daily living. The patient is not exhibiting any aberrant behavior suggestive of drug diversion. The patient is not having any adverse reactions to medications. The patient is not suffering from daytime somnolence or mental acuity changes. The patient is managing opiate-induced constipation with appropriate owqn-hxv-oyqjeiu agents and dietary considerations. The patient was counseled on concern for caution with operating a motor vehicle while using opiate medications. A physical exam was performed and the patient's functional status was evaluated. All patients with back pain were advised against the bed rest greater than 4 days and were advised to return to normal activities. Pain score assessment was noted and the treatment plan was reviewed with the patient. All current medications, both prescribed and OTC were reviewed and reconciled on the electronic medical record. Tobacco screening was accomplished and smoking cessation was advised when indicated. BMI was noted and diet/exercise modification was recommended for all patients following outside normal parameters. I reviewed with the patient today their responsibilities to [facility] [address] [address] PAIN MANAGEMENT CONSULTATION Name: RAD LINDER Room #: REG [facility]#: [id number] Admission: 10/01/20 Attend Phys: Keira Shelton Discharge: Date of : 44 Report #: [id number] prescription medications, reviewed their responsibility to utilize medications only as prescribed by the physician. They are to seek and receive pain medications only from 1 physician group ( [facility]). They are to use 1 pharmacy and keep the clinic informed if they change pharmacies. Their responsibilities include making followup visits in a timely fashion and to avoid abrupt discontinuation of medication usage. Their responsibilities further include bringing their medications (bottles from the pharmacy with residual pills) to the visit for possible confirmation of pill counts and the patient understands it is their responsibility to submit to random drug screens to ensure both that the medications prescribed are present, and that no other controlled substances are present. All prescriptions provided today were generated electronically. PLAN: 1. We discussed treatment options with the patient today. The patient continues on her oxycodone 10/325 four tablets a day with occasional extra strength Tylenol supplementing two of her doses and believes this is beneficial. We will have Dr. Dyer send these electronically today for #120 for today and 4-week supply. 2. We did discuss her spinal cord stimulator battery. The patient is wondering about having it removed. I explained if it is not bothersome to her, I would not have her undergo an outpatient procedure just to remove the battery pack at this time of increasing COVID. The patient verbalizes understanding and does not bother her and will just leave it alone. 3. The patient will return in 2 months followup for medications. Again, the patient is seen in collaboration with Dr. Dyer today, who is covering for Dr. Mcqueen. <ELECTRONICALLY SIGNED> By: Keira Shelton 10/01/20 1516 [id number] 1420 Keira Shelton /nt
== END ==
LOC: PAIN 06:49
PROVIDERS: ATTEND Clinical Nurse Specialist Adult Health
DX: G89.4 Chronic pain syndrome (principal); M54.16 Radiculopathy, lumbar region; Z79.891 Long term (current) use of opiate analgesic

== ENCOUNTER → 2020-12-01 | Outpatient (CLI) | payer OTHER ==
[~2020-12-01] VITALS: Ht 162.6 cm; Wt 83.8 kg
[2020-12-01 10:43] VITALS: BP 123/67
--- NOTE | 2020-12-01 10:56 | NUR ---
Pain Clinic Assessment: 1. History of Osteoarthritis: DENIES History of Rheumatoid Arthritis: DENIES 2. Height: 5 ft. 4 in. 162.6 cm. Weight: 184.8 lb. oz. 83.825 kg. Patient's BMI: 31.7 3. Vital Signs: BP: 123/67 Pulse: 90 Resp: 16 Temp: 02 Sat: 97 ECG Mon: 4. Pain Intensity: 2-7 5. Fall Risk: Dizziness: N Needs help standing or walking: N Fallen in the last 3 months: N Fall risk comments: 6. Patient on Blood Thinner: None 7. History of Hypertension: Y 8. Opioid Therapy greater than 6 weeks: Y Opiate Contract Signed: 05/04/16 9. Risk Assessment Tool Provided: 1-LOW RISK 10. Functional Assessment Tool: 11. Recreational Drug Use: Never Drug Type: Tobacco Use: Never Smoker Tobacco Type: Amount or Packs/day: How Many Years: Alcohol Use: Yes Frequency: Monthly Quant: 2 TO 3 X/MO
--- NOTE | 2020-12-02 09:48 | HPC ---
[facility] [address] [place] [address] PAIN MANAGEMENT CONSULTATION Name: RAD LINDER [id number] Admission: 12/01/20 Attend Phys: Keira Shelton Discharge: Date of : 42 Report #: [id number] THIS REPORT FOR: cc: ALESSANDRA TELLEZ MD, STACY C. MD Hocker,Keira COBOS ~ DATE OF SERVICE: 12/01/2020 CHIEF COMPLAINT: Chronic low back pain. HISTORY OF PRESENT ILLNESS: This is a pleasant 80-year-old female who returns to the pain clinic today for refill of her opioid medications that she uses to help treat her ongoing low back pain. She does report her pain score is 2-7 depending on the time of day, her pain does increase first thing in the morning. She has been utilizing ice upon awakening and then takes her pain medication slightly later in the morning. She has found this has been beneficial in allowing her to take on some days less pain pills. She does describe her pain as a dull, aching, intermittent tightness that is worse with weather changes or prolonged sitting. Again, first thing in the morning, she has worse pain and then again late at night. She denies any constipation issues, but if she does find she is constipated, she increases her fiber, mvwz-kkc-wjohvoz medications and water intake. ALLERGIES: AMOXICILLIN. CURRENT LIST OF MEDICATIONS: Percocet 10/325 3-4 times a day, Imitrex, Zestoretic, bupropion, Ventolin inhaler, Senokot, levothyroxine, vitamin D, MiraLax, multivitamin, Cymbalta, and simvastatin. PQRS: 1. She has arthritic changes in her lumbar spine. Denies any rheumatoid arthritis. 2. Height is 5 feet 4 inches, weight is 184, BMI is 31. Vital signs 123/67, pulse is 90, respirations 16, oxygen sat is 97%. Pain score is 2-7 depending on the time a day. Fall risk. Denies dizziness. Does not need assistance with ambulation. Has not fallen in the last 3 months. The patient is not on any blood thinners, but does take medicine for hypertension. Her opioid therapy is greater than 6 weeks; therefore, an opioid signed contract is on the chart. Risk assessment is low. Functional assessment is 38/70. Recreational drug use, she denies. She is not a smoker and occasionally drinks alcohol. According to the prescription monitoring system, the patient is past due to fill her medications. She reports taking her last pill this morning. Her morphine mEq according to the CDC guidelines is 60 MMEs. There is a random drug screen on the chart that is appropriate for her medications. [address] [address] PAIN MANAGEMENT CONSULTATION Name: RAD LINDER Room #: REG PADMINI Blake#: [id number] Admission: 12/01/20 Attend Phys: Keira Shelton Discharge: Date of : 42 Report #: [id number] PHYSICAL EXAMINATION: GENERAL: This is alert and orientated 80-year-old female who appears her stated age, placing her current pain score at 2-7 depending on the time of day. She is a good historian. HEENT: Normocephalic, atraumatic. extraocular eye muscles are intact. She is wearing a mask. MUSCULOSKELETAL: She has tenderness in her lumbar region of her spine. She moves easily from the seated to standing position. Her gait is mildly antalgic. Straight leg raising is negative. She has a spinal cord stimulator battery in place, which is no longer in use. Her lower extremity strength is normal in strength and sensation. IMPRESSION: 1. Chronic intractable low back pain. 2. Lumbar radiculopathy. 3. Management of high-risk medications utilizing opioid agreement. PLAN: 1. We discussed treatment options with the patient today. The patient finds her medications very beneficial allowing her to be as active as she would like, caring for her house and participating in activities. Today, we will have Dr. Carlos Mcqueen send her oxycodone 10/325, #120 to her pharmacy for today release and 4-week release. 2. I encouraged the patient to call for a timely appointment to avoid any possible withdrawal symptoms. I encouraged her to fill and to call for an appointment when she fills her last prescription and to see Dr. Carlos Mcqueen at her next visit. 3. We did discuss the COVID vaccine. The patient is on the list of [facility], but she is unsure when she and her will obtain the vaccine. 4. The patient will see Dr. Carlos Mcqueen at her next visit in January. He collaborated care today. <ELECTRONICALLY SIGNED> By: Keira Shelton 12/02/20 0948 [id number] Keira Shelton /cedric
== END ==
LOC: PAIN 07:07
PROVIDERS: ATTEND Clinical Nurse Specialist Adult Health
DX: G89.4 Chronic pain syndrome (principal); M54.16 Radiculopathy, lumbar region; Z79.891 Long term (current) use of opiate analgesic

== ENCOUNTER → 2021-01-26 | Outpatient (CLI) | payer OTHER ==
[~2021-01-26] VITALS: Ht 162.6 cm; Wt 86.8 kg
[2021-01-26 14:21] VITALS: BP 124/81
--- NOTE | 2021-01-26 14:40 | NUR ---
Pain Clinic Assessment: 1. History of Osteoarthritis: DENIES History of Rheumatoid Arthritis: DENIES 2. Height: 5 ft. 4 in. 162.6 cm. Weight: 191.4 lb. oz. 86.819 kg. Patient's BMI: 32.8 3. Vital Signs: BP: 124/81 Pulse: 102 Resp: 16 Temp: 02 Sat: 97 ECG Mon: 4. Pain Intensity: 3 5. Fall Risk: Dizziness: N Needs help standing or walking: N Fallen in the last 3 months: N Fall risk comments: 6. Patient on Blood Thinner: None 7. History of Hypertension: Y 8. Opioid Therapy greater than 6 weeks: Y Opiate Contract Signed: 05/04/16 9. Risk Assessment Tool Provided: 1-LOW RISK 10. Functional Assessment Tool: 11. Recreational Drug Use: Never Drug Type: Tobacco Use: Never Smoker Tobacco Type: Amount or Packs/day: How Many Years: Alcohol Use: Yes Frequency: Special Occasions Quant: 1
== END ==
LOC: PAIN 07:37
PROVIDERS: ATTEND Anesthesiology Pain Medicine
DX: G89.4 Chronic pain syndrome (principal); M54.5 Low back pain; I10 Essential (primary) hypertension; Z72.89 Other problems related to lifestyle; Z79.899 Other long term (current) drug therapy; Z79.891 Long term (current) use of opiate analgesic; Z88.1 Allergy status to other antibiotic agents

== ENCOUNTER → 2021-03-25 | Outpatient (CLI) | payer OTHER ==
[~2021-03-25] VITALS: Ht 162.6 cm; Wt 85.6 kg
[2021-03-25 08:43] VITALS: BP 128/80
--- NOTE | 2021-03-25 08:53 | NUR ---
Pain Clinic Assessment: 1. History of Osteoarthritis: * DENIES History of Rheumatoid Arthritis: DENIES 2. Height: 5 ft. 4 in. 162.6 cm. Weight: 188.8 lb. oz. 85.639 kg. Patient's BMI: 32.4 3. Vital Signs: BP: 128/80 Pulse: 86 Resp: 16 Temp: 02 Sat: 97 ECG Mon: 4. Pain Intensity: 3 5. Fall Risk: Dizziness: N Needs help standing or walking: N Fallen in the last 3 months: N Fall risk comments: 6. Patient on Blood Thinner: None 7. History of Hypertension: Y 8. Opioid Therapy greater than 6 weeks: Y Opiate Contract Signed: 05/04/16 9. Risk Assessment Tool Provided: 1-LOW RISK 10. Functional Assessment Tool: 11. Recreational Drug Use: Never Drug Type: Tobacco Use: Never Smoker Tobacco Type: Amount or Packs/day: How Many Years: Alcohol Use: Yes Frequency: Special Occasions Quant: 1
--- NOTE | 2021-03-26 07:27 | HPC ---
[facility] [address] [place] [address] PAIN MANAGEMENT CONSULTATION Name: RAD LINDER Room #: REG [facility]..#: [id number] Admission: 03/25/21 Attend Phys: Keira Shelton Discharge: Date of : 44 Report #: [id number] THIS REPORT FOR: cc: ALESSANDRA TELLEZ MD, Keira Bear MD ~ DOC #: [id number] cc: ALESSANDRA TELLEZ MD, Karson Clay, DO Keira Shelton NP DATE OF SERVICE: 03/25/2021 CHIEF COMPLAINT: Chronic low back pain. HISTORY OF PRESENT ILLNESS: This is a very pleasant 80-year-old female who is a longstanding patient of our clinic who returns today for renewal of her medications. Today, she is rating her pain a 3/10. She believes that the current regimen she is on well controls her pain and allows her to be as active as she would like. Most problematic area is across her low back with no radicular symptoms. She describes it as a dull, intermittent tightness that is worse with prolonged sitting and the weather changes recently had increased her pain from at times. Overall, she believes that medication as well as occasional ice to her low back region. She does have some issues with constipation that she manages with hvax-bbv-vgluouz medications and denies any daytime somnolence. ALLERGIES: AMOXICILLIN. CURRENT LIST OF MEDICATIONS: Oxycodone p.r.n., Imitrex, Zestoretic, bupropion, albuterol, Senokot, levothyroxine, vitamin D3, MiraLax, multivitamin, Cymbalta and Zocor. PQRS: 1. She has arthritic changes in her lumbar spine. Denies any rheumatoid arthritis. 2. Height is 5 feet 4 inches, weight is 188, BMI is 32. 3. Vital signs: 128/80, pulse is 86, respirations 16, oxygen sat is 97%. 4. Pain score is 3/10. 5. Denies dizziness, does not need help walking or standing. Has not fallen in the last 3 months. 6. The patient is not on any blood thinners, but does take medicine for hypertension. 7. Opioid therapy is greater than 6 weeks; therefore, an opioid signed contract is on the chart. 8. Risk assessment is low. 9. Functional assessment is 38/70. 10. Recreational drug use, she denies. She is not a smoker and occasionally [address] [address] PAIN MANAGEMENT CONSULTATION Name: RAD LINDER Room #: REG [facility].#: [id number] Admission: 03/25/21 Attend Phys: Keira Shelton Discharge: Date of : 42 Report #: [id number] drinks alcohol. According to the prescription monitoring system, she is due to fill her medications this week, filling them in a timely fashion. Her morphine milliequivalent is 60 MME according to the CDC guidelines. There is a drug screen in the chart that is appropriate as well and we will recheck that at her next visit. PHYSICAL EXAMINATION: GENERAL: This is alert and orientated well-developed, well-nourished 80-year-old female who appears her stated age, rating her pain score today at 3/10. She is a good historian. HEENT: PERRL/EOMI. She is wearing a mask. MUSCULOSKELETAL: Scars from previous surgery are present in her lumbar region. The spinal cord stimulator battery in her left hip. Lower extremity strength is symmetrical at 5/5. Tenderness in the lumbosacral region with no radicular symptoms noted today. Her gait is mildly antalgic. Straight leg raising is negative. IMPRESSION: 1. Chronic intractable low back pain. Lumbar spondylosis. 2. Management of high risk medications utilizing the scheduled opioid medications. 3. Failed spinal cord stimulator. We reviewed the fact that opiate medications are being used to provide analgesia adequate to support activities of daily living, not attempting to achieve a specific pain score on the 0-10 Visual Analog Scale. The current opiate medications are providing sufficient analgesia to allow the patient to participate in activities of daily living. The patient is not exhibiting any aberrant behavior suggestive of drug diversion. The patient is not having any adverse reactions to medications. The patient is not suffering from daytime somnolence or mental acuity changes. The patient is managing opiate-induced constipation with appropriate ozju-twl-deoicjw agents and dietary considerations. The patient was counseled on concern for caution with operating a motor vehicle while using opiate medications. PLAN: 1. We discussed treatment options with the patient today. The patient feels her medications have been beneficial allowing her to be as active as possible. She does find when she is more active. She does have less pain and I encouraged her to not overdo it, would be as active as she is able and encourage walking for exercise. They do have a dog, which she does require care and she feels like she is able to walk with him most days. 2. Dr. Dyer who is covering for Dr. lCay will send her oxycodone , #120 to her pharmacy today and again in 4 weeks for release. [address] [address] PAIN MANAGEMENT CONSULTATION Name: RAD LINDER Room #: REG [facility]#: [id number] Admission: 03/25/21 Attend Phys: Keira Shelton Discharge: Date of : 44 Report #: [id number] 3. At the next visit, we will collect a random drug screen on this patient that it will have been greater than 1 year. Time spent with the patient in consultation, reviewing clinical notes and physician reports, physical examination and correlation of findings and medical documentation to determine treatment options, 11 minutes. Time spent for preparation for appointment, reviewing prescription monitoring system reports, previous records were reviewed and proposed treatment options and reviewing current medications, 5 minutes. Time spent in preparing and sending electronic prescriptions with collaborating physician, Dr. Bjorn Dyer who is covering for Dr. Clay, documentation of visit and plan of treatment, 5 minutes. Total time spent, 21 minutes. FRANKI Lucas/SCOTTIE/ZACHARY <ELECTRONICALLY SIGNED> By: Keira Shelton 03/26/21 0727 [id number] Keira Shelton /nt
== END ==
LOC: PAIN 06:57
PROVIDERS: ATTEND Clinical Nurse Specialist Adult Health
DX: M47.816 Spondylosis without myelopathy or radiculopathy, lumbar region (principal); G89.4 Chronic pain syndrome; Z79.891 Long term (current) use of opiate analgesic; Z79.899 Other long term (current) drug therapy; Z88.1 Allergy status to other antibiotic agents

== ENCOUNTER → 2021-05-19 | Outpatient (CLI) | payer OTHER ==
[~2021-05-19] VITALS: Ht 162.6 cm; Wt 85.5 kg
[2021-05-19 09:22] VITALS: BP 148/92
--- NOTE | 2021-05-19 09:36 | NUR ---
Pain Clinic Assessment: 1. History of Osteoarthritis: DENIES History of Rheumatoid Arthritis: DENIES 2. Height: 5 ft. 4 in. 162.6 cm. Weight: 188.6 lb. oz. 85.548 kg. Patient's BMI: 32.4 3. Vital Signs: BP: 148/92 Pulse: 85 Resp: 20 Temp: 02 Sat: 95 ECG Mon: 4. Pain Intensity: 3 5. Fall Risk: Dizziness: N Needs help standing or walking: N Fallen in the last 3 months: N Fall risk comments: 6. Patient on Blood Thinner: None 7. History of Hypertension: Y 8. Opioid Therapy greater than 6 weeks: Y Opiate Contract Signed: 05/04/16 9. Risk Assessment Tool Provided: 1-LOW RISK 10. Functional Assessment Tool: 11. Recreational Drug Use: Never Drug Type: Tobacco Use: Never Smoker Tobacco Type: Amount or Packs/day: How Many Years: Alcohol Use: Yes Frequency: Monthly Quant: 2
--- NOTE | 2021-05-20 08:37 | HPC ---
[facility] [address] [place] [address] PAIN MANAGEMENT CONSULTATION Name: RAD LINDER [id number] Admission: 05/19/21 Attend Phys: Karson Clay DO Discharge: Date of : 44 Report #: [id number] THIS REPORT FOR: cc: ALESSANDRA TELLEZ MD, STACY C. MD Johnson, James E. DO ~ cc: Alessandra Tellez DATE OF SERVICE: 05/19/2021 CHIEF COMPLAINT: Chronic low back pain. HISTORY OF PRESENT ILLNESS: As you know, the patient is a very pleasant 80-year-old female with longstanding history of chronic low back pain due to a combination of lumbar radiculopathy and facet arthropathy, lumbar spine. She has had various treatments in the past with epidural injections and medication management. She unfortunately continues to experience pain level up to 3/10. She states that the combination of medications along with changes in her daily lifestyle tend to improve pain. She has been relying on the medication 4 times a day for an extended period of time and believes that she may be starting to experience some tolerance to the therapy. We have discussed the possibility of adjusting medications in the past, but given recent political concerns regarding opioid medications, she has questions in regards to continue treatment today. She returns today in followup visit requesting refill on medications. She is denying side effects of sleepiness, disorientation, confusion, mental slowing or constipation with their use. She has been involved in no new injuries or traumas nor she had any changes in medication management that would affect our direct treatment. ALLERGIES: AMOXICILLIN. CURRENT MEDICATIONS: Oxycodone 10 mg 4 times a day, sumatriptan 100 mg p.r.n., lisinopril/hydrochlorothiazide 20/25 once a day, bupropion SR 150 mg once a day, albuterol to 2 puffs q. 4 hours p.r.n., levothyroxine 125 mcg per day, vitamin D3 2000 units twice a day, MiraLax 17 grams once a day, duloxetine 60 mg twice a day, simvastatin 40 mg once a day, Senokot-S 1 tab per day. SOCIAL HISTORY: The patient denies tobacco, alcohol or IV or illicit drug use. She is retired, retired years ago, unaccompanied at today's visit. IMAGING: No new imaging available. PQRS: The patient has known arthritic changes of the lumbar spine, bilateral hips. No rheumatoid arthritis. She is placing current pain intensity 3/10. She is not a fall risk, has not had a fall in last 3 months. She is not on blood thinners nor is she treated for hypertension. She is on chronic opioids, has a low opioid addiction potential based on our assessment [place] [address] PAIN MANAGEMENT CONSULTATION Name: RAD LINDER Room #: REG [facility] Lou#: [id number] Admission: 05/19/21 Attend Phys: Karson Clay DO Discharge: Date of : 42 Report #: [id number] is 38/70, moderate interference of daily activities secondary to pain. PHYSICAL EXAMINATION: VITAL SIGNS: Blood pressure 148/92, pulse 85, respiratory rate 20, unlabored. The patient 95% on room air. Height 5 feet 4 inches tall, weight 188.6 pounds, BMI calculated 32.4. GENERAL: Well-developed, well-nourished, well-hydrated 80-year-old female appearing stated age, placing current pain score 3/10. HEENT: Normocephalic, atraumatic. Pupils are round she is wearing a mask in compliance with COVID-19 regulations. EXTREMITIES: Show no clubbing, no cyanosis. No appreciable edema. MUSCULOSKELETAL: Lower extremity strength equal and symmetrical 5/5, intact to light touch from L1 through S2 dermatomes. Seated straight leg raising negative. Supine straight leg raising is equivocal. Gait is mildly antalgic. Lumbar provocation testing is met with slight increase in axial back pain, no radiation of symptoms. ASSESSMENT: 1. Chronic lumbar radiculopathy. 2. Lumbosacral spondylosis with radiculopathy. 3. Displacement of lumbar intervertebral disk with radiculopathy. 4. Neural foraminal stenosis of lumbar spine. 5. Chronic intractable pain. PLAN: 1. The patient returns today in followup visit where we have discussed at length her concerns about opioid medication. There has recently been a lawsuit that has settled with the 3 major distributors opioid medication in the [place] along with the company [employer]. This was for 23.25 billion dollars. This may directly affect opioid availability in the [place]. At this point, we have not been advised of any rationing or reduction in production or distribution of these medications though if this lawsuit does stand and the judgment stance, there may be a significant loss of availability of these medications, which may directly affect this patient. At this point, I would not recommend any changes in therapy as we are not sure what this lawsuit will entail or how much affect it will have. I believe she can still have access to these medications as long as she is not experiencing side effects and takes them appropriately. We have agreed to continue the medication for the next two months. She is taking 40 mg of oxycodone per day, equating to approximately 60 mg morphine equivalents. 2. We reviewed the fact that opiate medications are being used to provide analgesia adequate to support activities of daily living, not attempting to achieve a specific pain score on the 0-10 Visual Analog Scale. The current opiate medications are providing sufficient analgesia to allow the patient to participate in activities of daily living. The patient is not exhibiting any aberrant behavior suggestive of drug diversion. The patient is not having any [facility] [address] [place] [address] PAIN MANAGEMENT CONSULTATION Name: NIYAHRAD Eulogio Room #: REG [facility].#: [id number] Admission: 05/19/21 Attend Phys: Karson Clay DO Discharge: Date of : 42 Report #: [id number] adverse reactions to medications. The patient is not suffering from daytime somnolence or mental acuity changes. The patient is managing opiate-induced constipation with appropriate uimv-yml-iksfdco agents and dietary considerations. The patient was counseled on concern for caution with operating a motor vehicle while using opiate medications. A physical exam was performed and the patient's functional status was evaluated. All patients with back pain were advised against the bed rest greater than 4 days and were advised to return to normal activities. Pain score assessment was noted and the treatment plan was reviewed with the patient. All current medications, both prescribed and OTC were reviewed and reconciled on the electronic medical record. Tobacco screening was accomplished and smoking cessation was advised when indicated. BMI was noted and diet/exercise modification was recommended for all patients following outside normal parameters. I reviewed with the patient today their responsibilities to safeguard prescription medications, reviewed their responsibility to utilize medications only as prescribed by the physician. They are to seek and receive pain medications only from 1 physician group ([facility]). They are to use 1 pharmacy and keep the clinic informed if they change pharmacies. Their responsibilities include making followup visits in a timely fashion and to avoid abrupt discontinuation of medication usage. Their responsibilities further include bringing their medications (bottles from the pharmacy with residual pills) to the visit for possible confirmation of pill counts and the patient understands it is their responsibility to submit to random drug screens to ensure both that the medications prescribed are present, and that no other controlled substances are present. All prescriptions provided today were generated electronically. 3. The patient was provided prescription of Percocet 10/325 1 tab p.o. q. 6 hours p.r.n. pain. Given the patient #120 tablets, released today and 4 weeks from today 2 months' worth of medication. The patient was advised not to fill any prescriptions that do not have a total of 120 pills, if shortening of the medication is provided, there will not be a refill of the medications until next month. If that pharmacy only has 90 tablets, she is not to accept those tablets until a total of 120 are available. 4. The patient was given information about intrathecal pump therapy. If they wish to continue treatment with medication therapy, they could look into this as a viable device for delivery of medication. I have given the patient information today. She wishes to discuss this further, we will do so. 5. We will see the patient back in followup visit 2 months for medication management. <ELECTRONICALLY SIGNED> By: Karson Clay DO 05/20/21 0837 [id number] Karson Clay DO /nt
== END ==
LOC: PAIN 07:10
PROVIDERS: ATTEND Anesthesiology Pain Medicine
DX: M47.26 Other spondylosis with radiculopathy, lumbar region (principal); M51.16 Intervertebral disc disorders with radiculopathy, lumbar region; M48.061 Spinal stenosis, lumbar region without neurogenic claudication; G89.4 Chronic pain syndrome; Z79.891 Long term (current) use of opiate analgesic; Z79.899 Other long term (current) drug therapy

== ENCOUNTER → 2021-07-14 | Outpatient (CLI) | payer OTHER ==
[~2021-07-14] VITALS: Ht 162.6 cm; Wt 84.9 kg
[2021-07-14 10:20] VITALS: BP 141/89
--- NOTE | 2021-07-14 10:32 | NUR ---
Pain Clinic Assessment: 1. History of Osteoarthritis: DENIES History of Rheumatoid Arthritis: DENIES 2. Height: 5 ft. 4 in. 162.6 cm. Weight: 187.2 lb. oz. 84.913 kg. Patient's BMI: 32.1 3. Vital Signs: BP: 141/89 Pulse: 89 Resp: 20 Temp: 02 Sat: 97 ECG Mon: 4. Pain Intensity: 3 5. Fall Risk: Dizziness: N Needs help standing or walking: N Fallen in the last 3 months: N Fall risk comments: 6. Patient on Blood Thinner: None 7. History of Hypertension: Y 8. Opioid Therapy greater than 6 weeks: Y Opiate Contract Signed: 05/04/16 9. Risk Assessment Tool Provided: 1-LOW RISK 10. Functional Assessment Tool: 11. Recreational Drug Use: Never Drug Type: Tobacco Use: Never Smoker Tobacco Type: Amount or Packs/day: How Many Years: Alcohol Use: Yes Frequency: Quant:
--- NOTE | 2021-07-15 13:54 | HPC ---
[facility] [place] [address] PAIN MANAGEMENT CONSULTATION Name: RAD LINDER Room #: REG [facility].#: [id number] Admission: 07/14/21 Attend Phys: Keira Shelton Discharge: Date of : 42 Report #: [id number] THIS REPORT FOR: cc: ALESSANDRA DAMON MD, ALESSANDRA Shelton,Keira COBOS ~ cc: Alessandra Damon, Karson Clay, DATE OF SERVICE: 07/14/2021 CHIEF COMPLAINT: Chronic low back pain. HISTORY OF PRESENT ILLNESS: This is a 80-year-old female, as you know who has continued ongoing low back pain that is chronic in nature. She has had spinal cord stimulator and epidurals in the past that have not been beneficial in decreasing her pain, though she does find oxycodone release a small portion of her pain each day. She would like to continue the Percocet and is here today for renewal. The patient reports her pain score today a 3/10 across her lower back as she describes as a wide belt area. It is a dull, intermittent tightness that is worse with prolonged sitting or weather changes. She does utilize ice as well as taking her medications. She denies any significant constipation issues that is not relieved by [id number] medications and denies any daytime somnolence. The patient reports that she has decreased her nabumetone to every other day due to elevated liver enzymes and is not needing a refill of that medication today. The patient does tell me that she takes 3 Tylenol tablets a day and she believes they are 325 mg. ALLERGIES: AMOXICILLIN. HOME MEDICATIONS: Oxycodone 10/325 p.r.n., Imitrex, lisinopril/hydrochlorothiazide, bupropion, albuterol p.r.n., Senokot, Synthroid, vitamin D3, MiraLax, multivitamin, Cymbalta, and simvastatin. PQRS: 1. She has arthritic changes in her spine and hips. Denies any rheumatoid arthritis. 2. Height is 5 feet 4 inches, weight is 187, BMI is 32. 3. Vital signs: Blood pressure 141/89, pulse is 89, respirations 20, oxygen sat is 97%. 4. Pain score is 3/10. 5. Denies dizziness, does not need help walking or standing, has not fallen in the last 3 months. 6. The patient is not on any blood thinners, but does have a history of hypertension. 7. Opioid therapy is greater than 6 weeks; therefore, an opioid signed contract [address] [address] PAIN MANAGEMENT CONSULTATION Name: RAD LINDER Room #: REG [facility] Lou#: [id number] Admission: 07/14/21 Attend Phys: Keira Shelton Discharge: Date of : 42 Report #: [id number] is on the chart. Risk assessment is low. Functional assessment is 38/70. 8. Recreational drug use, she denies. She is not a smoker and occasionally drinks alcohol. According to the prescription monitoring system, the patient is filling appropriately. Her morphine mg equivalent according to the CDC guidelines is 60 MME per day. We will collect a random drug screen on this patient today as it has been greater than one year. PHYSICAL EXAMINATION: GENERAL: This is a well-developed, well-nourished, well-hydrated 80-year-old female who appears her stated age, rating her current pain score at 3/10 today. HEENT: Normocephalic, atraumatic. Pupils equal, round and reactive to light. She is wearing a mask for COVID precautions. EXTREMITIES: No clubbing, no cyanosis, no edema. MUSCULOSKELETAL: Seated straight leg raising is negative. Gait is mildly antalgic. Lumbar provocation testing is met with slight increase in her axial back pain, no radicular symptoms noted today. Her lower extremity strength are symmetrical at 5/5 with good sensation. ASSESSMENT: 1. Chronic lumbar radiculopathy. 2. Lumbar sacral spondylosis with radiculopathy. 3. Displacement of lumbar intervertebral disk with radiculopathy. 4. Neural foraminal stenosis of lumbar spine. 5. Chronic intractable pain. PLAN: 1. We discussed treatment options with the patient today. We will renew her oxycodone, which she does find beneficial in helping decrease some of her pain. I remind the patient that we are not able to make her pain free, we provide oxycodone as a tool to help her be more active around the house and decrease her pain to a tolerable level. Scripts will be sent electronically by Dr. Karson Clay for #120 released today and again in 4 weeks. 2. We will collect a random drug screen on this patient today. She does report taking her medication earlier today. 3. We did discuss Tylenol use, reminding her that every oxycodone tablet does have 325 mg of Tylenol in them. If she does take an additional 3 tablets per day, she is at the limit that we would like to see her at. If she is able to decrease her amount that would be beneficial since she has slightly elevated liver enzymes per her report. I encouraged her not to take 500 mg tablets, but to make sure at home they are 325 mg Tylenol tablets. 4. The patient will return in 2 months. Time spent with the patient in consultation, reviewing clinical notes and physician reports, physical examination and correlation of findings and medical [facility] [address] [place] [address] PAIN MANAGEMENT CONSULTATION Name: RAD LINDER Room #: [facility] [place].#: [id number] Admission: 07/14/21 Attend Phys: Keira Shelton Discharge: Date of : 42 Report #: [id number] documentation to determine possible treatment options 15 minutes. Time spent preparing for appointment, reviewing prescription monitoring system reports, previous records were reviewed and proposed treatment options and reviewing current medications, 5 minutes. Time spent in preparing and sending electronic prescriptions with collaborating physician, Dr. Karson Clay, documentation of visit, plan of treatment and urine collection, 7 minutes. Total time spent 27 minutes. <ELECTRONICALLY SIGNED> By: Keira Shelton 07/15/21 1354 [id number] Keira Shelton /nt
== END ==
LOC: PAIN 06:51
PROVIDERS: ATTEND Clinical Nurse Specialist Adult Health
DX: M47.26 Other spondylosis with radiculopathy, lumbar region (principal); G89.4 Chronic pain syndrome; Z79.891 Long term (current) use of opiate analgesic; Z79.899 Other long term (current) drug therapy

== ENCOUNTER → 2021-09-02 | Outpatient (CLI) | payer OTHER ==
[~2021-09-02] VITALS: Ht 162.6 cm; Wt 85.3 kg
[2021-09-02 09:09] VITALS: BP 112/68
--- NOTE | 2021-09-02 09:28 | NUR ---
Pain Clinic Assessment: 1. History of Osteoarthritis: DENIES History of Rheumatoid Arthritis: DENIES 2. Height: 5 ft. 4 in. 162.6 cm. Weight: 188.0 lb. oz. 85.276 kg. Patient's BMI: 32.3 3. Vital Signs: BP: 112/68 Pulse: 81 Resp: 14 Temp: 02 Sat: 97 ECG Mon: 4. Pain Intensity: 4 TO 7 (WITHOUT MED) 5. Fall Risk: Dizziness: N Needs help standing or walking: N Fallen in the last 3 months: N Fall risk comments: 6. Patient on Blood Thinner: None 7. History of Hypertension: Y 8. Opioid Therapy greater than 6 weeks: Y Opiate Contract Signed: 05/04/16 9. Risk Assessment Tool Provided: 1-LOW RISK 10. Functional Assessment Tool: 11. Recreational Drug Use: Never Drug Type: Tobacco Use: Never Smoker Tobacco Type: Amount or Packs/day: How Many Years: Alcohol Use: Yes Frequency: Special Occasions Quant: 1
--- NOTE | 2021-09-02 14:51 | HPC ---
[facility] [address] [place] [address] PAIN MANAGEMENT CONSULTATION Name: RAD LINDER Room #: REG [facility]#: [id number] Admission: 09/02/21 Attend Phys: Keira Shelton Discharge: Date of : 44 Report #: [id number] THIS REPORT FOR: cc: ALESSANDRA DAMON MD, ALESSANDRA Shelton,Keira COBOS ~ cc: Alessandra Damon, Karson Clay DO DATE OF SERVICE: 09/02/2021 CHIEF COMPLAINT: Chronic low back pain. HISTORY OF PRESENT ILLNESS: This is a pleasant 81-year-old female who has continued low back pain and takes opioid medications on a daily basis to help treat this. She has had numerous surgeries in the past that have been unsuccessful as well as a spinal cord stimulator that did not benefit her pain as she had hoped. Therefore, she continues to take Percocet on an as needed basis daily. Today, the patient is reporting her pain score a 4-7 depending on the time of day with her medications. She reports her pain is a dull, intermittent tightness. Her pain is worse with weather changes, worse as the day progresses as well as sitting too long. Overall, she believes medication as well as ice is beneficial. She does have some issues of daytime somnolence after she takes her initial medication, lasting for about 30 minutes. She denies any constipation as a result of her opioid medications. Today the patient is reporting that she is feeling somewhat depressed. She feels that may be normal at her age. She had started taking Bruproion a while ago and may discuss this with her primary care doctor. She is trying to exercise, walking at least once a day. She is depressed that she has not lost any weight since she has increased her activity as well. ALLERGIES: AMOXICILLIN. CURRENT LIST OF MEDICATIONS: Oxycodone 10/325 up to four times a day p.r.n., Imitrex, Zestoretic, bupropion, albuterol, senna, levothyroxine, vitamin D3, MiraLax, multivitamin, duloxetine, and simvastatin. PQRS: 1. She has osteoarthritic changes in her back and hips. Denies any rheumatoid arthritis. Height is 5 feet 4 inches, weight is 188. BMI is 32. 2. Vital signs 112/68, pulse is 81, respirations 14, oxygen sat is 97%. 3. Pain score is 4-7 depending on the time of day with and without medications. 4. Denies dizziness, does not need assistance with ambulation, has not fallen in the last 3 months. 5. Patient is not on any blood thinners, but does have a history of hypertension. Opioid therapy is greater than 6 weeks; therefore, an opioid signed contract is on the chart. [address] [address] PAIN MANAGEMENT CONSULTATION Name: NIYAHRAD G Room #: REG [facility] Lou#: [id number] Admission: 09/02/21 Attend Phys: Keira Shelton Discharge: Date of : 44 Report #: [id number] 6. Risk assessment is low. Functional assessment is 38/70. 7. Recreational drug use, she denies. She is not a smoker and occasionally drinks alcohol. According to the prescription monitoring system, she is filling appropriately and in a timely fashion. Her morphine milliequivalent is 60 MME. She is due to fill her medications next week. We did check a random drug screen at her last visit that is appropriate for her opioid medications. PHYSICAL EXAMINATION: GENERAL: This is a well-developed, well-nourished, well-hydrated 81-year-old female who appears her stated age, rating her current pain score 4-7 depending on activity. She is a good historian. HEENT: Normocephalic, atraumatic. Extraocular eye muscles are intact. She is wearing a mask for COVID precautions. EXTREMITIES: No clubbing, no cyanosis. No appreciable edema. MUSCULOSKELETAL: She has tenderness in the lumbosacral region. No radicular symptoms today. She has a slightly antalgic gait. Lumbar provocation testing does increase her axial back pain. Lower extremity strength are symmetrical 5/5 with good sensation from L1-S2. IMPRESSION: 1. Chronic lumbar radiculopathy. 2. Lumbosacral spondylosis with radiculopathy. 3. Failed spinal cord stimulator. 4. Displacement of lumbar intervertebral disk with radiculopathy. 5. Neural foraminal stenosis of the lumbar spine. 6. Depression. 7. Chronic intractable pain. 8. Opioid medication management utilizing scheduled medications. We reviewed the fact that opiate medications are being used to provide analgesia adequate to support activities of daily living, not attempting to achieve a specific pain score on the 0-10 Visual Analog Scale. The current opiate medications are providing sufficient analgesia to allow the patient to participate in activities of daily living. The patient is not exhibiting any aberrant behavior suggestive of drug diversion. The patient is not having any adverse reactions to medications. The patient is not suffering from daytime somnolence or mental acuity changes. The patient is managing opiate-induced constipation with appropriate [id number] agents and dietary considerations. The patient was counseled on concern for caution with operating a motor vehicle while using opiate medications. A physical exam was performed and the patient's functional status was evaluated. All patients with back pain were advised against the bed rest greater than 4 days and were advised to return to normal activities. Pain score assessment was [facility] [address] [place] [address] PAIN MANAGEMENT CONSULTATION Name: RAD LINDER Room #: REG [facility].#: [id number] Admission: 09/02/21 Attend Phys: Keira Shelton Discharge: Date of : 44 Report #: [id number] noted and the treatment plan was reviewed with the patient. All current medications, both prescribed and OTC were reviewed and reconciled on the electronic medical record. Tobacco screening was accomplished and smoking cessation was advised when indicated. BMI was noted and diet/exercise modification was recommended for all patients following outside normal parameters. I reviewed with the patient today their responsibilities to safeguard prescription medications, reviewed their responsibility to utilize medications only as prescribed by the physician. They are to seek and receive pain medications only from 1 physician group ( [facility]). They are to use 1 pharmacy and keep the clinic informed if they change pharmacies. Their responsibilities include making followup visits in a timely fashion and to avoid abrupt discontinuation of medication usage. Their responsibilities further include bringing their medications (bottles from the pharmacy with residual pills) to the visit for possible confirmation of pill counts and the patient understands it is their responsibility to submit to random drug screens to ensure both that the medications prescribed are present, and that no other controlled substances are present. All prescriptions provided today were generated electronically. PLAN: 1. We discussed treatment options with the patient today. First, we discussed her complaints of increase in depression. I encouraged her to discuss this with her primary care doctor and may have her medications adjusted. She does take bupropion as well as Cymbalta. Cymbalta does help with pain as well as depression. 2. We did discuss her wanting to lose weight. She is frustrated that she has not lost any since she has been trying to exercise more. I encouraged her since she does have issues with pain and is unable to walk as long as she would like to do 2 or 3 shorter walks throughout the day instead of 1 long walk. Also, reminded her that she does have thyroid issues that do affect her metabolism with weight loss. It was noted in her chart that she has been stable at her current weight for at least the past year. 3. We will continue her on her Percocet 10/325, #120. She is due for this medication next week. Scripts will be sent electronically by Dr. Karson Clay for the next 2 months. Time spent with the patient in consultation, reviewing clinical notes and physician reports, physical examination and correlation of findings and medical documentation to determine possible treatment options, 15 minutes. Time spent preparing for appointment, reviewing prescription monitoring system reports, reviewing previous records and proposed treatment options and current medications 5 minutes. Time spent preparing and sending electronic prescriptions with collaborating physician, Dr. Karson Clay and documentation of visit and plan of treatment [address] [address] PAIN MANAGEMENT CONSULTATION Name: RAD LINDER Room #: REG [facility]#: [id number] Admission: 09/02/21 Attend Phys: Keira Shelton Discharge: Date of : 44 Report #: [id number] Total time spent 25 minutes. <ELECTRONICALLY SIGNED> By: Keira Shelton 09/02/21 [id number] Keira Shelton /nt
== END ==
LOC: PAIN 08:52
PROVIDERS: ATTEND Clinical Nurse Specialist Adult Health
DX: G89.29 Other chronic pain (principal); M47.27 Other spondylosis with radiculopathy, lumbosacral region; M51.16 Intervertebral disc disorders with radiculopathy, lumbar region; M48.061 Spinal stenosis, lumbar region without neurogenic claudication; F34.89 Other specified persistent mood disorders; Z88.1 Allergy status to other antibiotic agents; Z79.899 Other long term (current) drug therapy

== ENCOUNTER → 2021-10-07 | Outpatient (CLI) | payer OTHER ==
[~2021-10-07] VITALS: Ht 162.6 cm; Wt 85.6 kg
[2021-10-07 13:06] VITALS: BP 140/87
--- NOTE | 2021-10-07 13:10 | NUR ---
Pain Clinic Assessment: 1. History of Osteoarthritis: DENIES History of Rheumatoid Arthritis: DENIES 2. Height: 5 ft. 4 in. 162.6 cm. Weight: 188.8 lb. oz. 85.639 kg. Patient's BMI: 32.4 3. Vital Signs: BP: 140/87 Pulse: 88 Resp: 16 Temp: 02 Sat: 94 ECG Mon: 4. Pain Intensity: 3 5. Fall Risk: Dizziness: N Needs help standing or walking: N Fallen in the last 3 months: N Fall risk comments: 6. Patient on Blood Thinner: None 7. History of Hypertension: Y 8. Opioid Therapy greater than 6 weeks: Y Opiate Contract Signed: 05/04/16 9. Risk Assessment Tool Provided: 1-LOW RISK 10. Functional Assessment Tool: 11. Recreational Drug Use: Never Drug Type: Tobacco Use: Never Smoker Tobacco Type: Amount or Packs/day: How Many Years: Alcohol Use: Yes Frequency: Monthly Quant: 1
== END ==
LOC: PAIN 09:04
PROVIDERS: ATTEND Clinical Nurse Specialist Adult Health
DX: M47.26 Other spondylosis with radiculopathy, lumbar region (principal); M51.16 Intervertebral disc disorders with radiculopathy, lumbar region; M48.062 Spinal stenosis, lumbar region with neurogenic claudication; G89.29 Other chronic pain; Z79.82 Long term (current) use of aspirin; Z88.1 Allergy status to other antibiotic agents; Z79.899 Other long term (current) drug therapy